=== PATIENT | female | born 1975 ===

== ENCOUNTER 2017-03-26 15:35 | Inpatient (IN) | payer MEDICAID ==
[2017-03-26 15:35] VITALS: BMI 33.9
--- NOTE | 2017-03-26 17:57 | ED PDOC ---
Lower Extremity Pain/Injury Time Seen by Provider: 03/26/17 16:12 Chief Complaint (Nursing): Lower Extremity Problem/Injury Chief Complaint (Provider): Leg pain History Per: Patient Additional Complaint(s): Pt is a 42 yo female, no PMH, has been undergoing wound care for the last 3 years due to chornic LE ulcerations. Patient sent to ED by Dr. Maurer for further evaluation and possible admission for OR Past Medical History Reviewed: Nursing Documentation, Vital Signs Vital Signs: Last Vital Signs Temp Pulse 66 03/26/17 15:56 Resp 18 03/26/17 15:56 BP 112/56 L 03/26/17 15:56 Pulse Ox 98 03/26/17 15:56 - Medical History PMH: No Chronic Diseases Denies: Chronic Kidney Disease - Family History Family History: States: Unknown Family Hx - Living Arrangements Living Arrangements: With Family - Social History Current smoker - smoking cessation education provided: No Alcohol: Social Drugs: Denies - Home Medications Home Medications: Ambulatory Orders Medication Instructions Recorded oxyCODONE/Acetaminophen [Percocet 1 tab PO Q8H PRN 03/26/17 5/325 mg Tab] - Allergies Allergies/Adverse Reactions: Allergies Allergy/AdvReac Type Severity Reaction Status Date / Time No Known Allergies Allergy Verified 07/21/16 17:34 Review of Systems ROS Statement: Except As Marked, All Systems Reviewed And Found Negative Musculoskeletal: Positive for: Leg Pain Physical Exam - Reviewed Nursing Documentation Reviewed: Yes Vital Signs Reviewed: Yes - Physical Exam Appears: Positive for: Well, Non-toxic, No Acute Distress Head Exam: Positive for: ATRAUMATIC, NORMAL INSPECTION, NORMOCEPHALIC Skin: Positive for: Normal Color, Warm, DRY Eye Exam: Positive for: EOMI, Normal appearance, PERRL ENT: Positive for: Normal ENT Inspection Neck: Positive for: Normal, Painless ROM Cardiovascular/Chest: Positive for: Regular Rate, Rhythm Respiratory: Positive for: CNT, Normal Breath Sounds Gastrointestinal/Abdominal: Positive for: Normal Exam, Bowel Sounds, Soft Back: Positive for: Normal Inspection Extremity: Positive for: Other (Exam prefomed by podiatry resident, see notes) Neurologic/Psych: Positive for: Alert, Oriented - Laboratory Results Result Diagrams: 03/26/17 18:15 03/26/17 18:15 - ECG O2 Sat by Pulse Oximetry: 98 Medical Decision Making Medical Decision Making: Podiatry consult obtained, residents at bedside. Diagnostics ordered Dr. Maurer requesting consults with Dr. aVlle and Dr. Mancini, resident states he will contact them FP resident presented for admission. Disposition - Clinical Impression Clinical Impression: Wounds, multiple open, lower extremity - Patient ED Disposition Is Patient to be Admitted: Yes - Disposition Disposition Time: 19:22 Condition: STABLE - POA Present On Arrival: None
[2017-03-26 18:24] LABS: BASO # 0.1 K/uL (0.0-0.2); BASO % 1.1 % (0.0-2.0); EOS # 0.1 K/uL (0.0-0.7); EOS % 0.8 % (0.0-4.0); HEMOGLOBIN 14.9 g/dL (12.0-16.0); LYMPH # 2.1 K/uL (1.0-4.3); MEAN CELL VOLUME 84.9 fl (81.0-99.0); MEAN CORPUSCULAR HEMOGLOBIN 28.7 pg (27.0-31.0); MEAN CORPUSCULAR HGB CONC 33.7 g/dL (33.0-37.0); MEAN PLATELET VOLUME 7.7 fl (7.2-11.7); MONO # 0.7 K/uL (0.0-0.8); MONO % 6.6 % (0.0-10.0); NEUT # 7.1 K/uL (1.8-7.0); NEUT % 70.5 % (50.0-75.0); NRBC % 0.1 % (0.0-0.0); RBC 5.2 Mil/uL (3.80-5.20); RED CELL DISTRIBUTION WIDTH 13.8 % (11.5-14.5)
[2017-03-26 18:45] LABS: ALB/GLOB RATIO 1.3 (1.0-2.1); ALBUMIN 4.4 g/dL (3.5-5.0); ALT/SGPT 34 U/L (9-52); AST/SGOT 27 U/L (14-36); BLOOD UREA NITROGEN 14 mg/dl (7-17); CALCIUM 9.1 mg/dL (8.4-10.2); GFR AFRICAN-AMERICAN > 60; GFR NON-AFRICAN AMERICAN > 60
--- NOTE | 2017-03-26 19:30 | CP.PCM.HP ---
History of Present Illness - History of Present Illness History of Present Illness: 42 yo F w h/o chronic lower extremity ulcers for several years is admitted for medical management of bilateral lower extremity ulcers and possible debridement. She states pain to be at a 2-3 out of 10 at the present time. The ulcers have been present for several years, she follows up with Podiatry, and she states that she last took Warfarin or any other anticoagulation medication 5 years ago. She also denies any fevers/chills, dizziness, lightheadedness, diaphoresis, night sweats, unexplained weight loss, nausea, vomiting, or diarrhea. She denies being aware of any medical problems in herself or other family members, such as "bleeding problems, clotting issues, Diabetes, HTN, heart problems, or breathing problems." As per chart review, she has an extensive h/o lower extremity ulcers over the previous few years, a sister with Factor V Leiden mutation (as per sister's own chart), and a likely family history of lower extremity ulcers in her sister and mother. She also denies any chest pain, SOB, dyspnea, cough, abdominal pain, hematuria, dysuria, or other myalgias. PMD: Dr Shaik Rehman Podiatry: Dr Maurer PMHx: chronic lower extremity ulcers; No documented history of Factor V Leiden Mutation seen PSHx: b/l Debridement Sep NKDA Home Meds: None FHx: None SHx: denies cigarettes, etoh, and illicit drugs Present on Admission - Present on Admission Any Indicators Present on Admission: No History of DVT/PE: No History of Uncontrolled Diabetes: No Urinary Catheter: No Decubitus Ulcer Present: No Review of Systems - Review of Systems All systems: reviewed and no additional remarkable complaints except (see HPI) Past Patient History - Past Medical History & Family History Past Medical History?: Yes - Past Social History Alcohol: Social Drugs: Denies - CARDIAC Hx Cardiac Disorders: No - PULMONARY Hx Respiratory Disorders: No - NEUROLOGICAL Hx Neurological Disorder: No - HEENT Hx HEENT Problems: No - RENAL Hx Chronic Kidney Disease: No - ENDOCRINE/METABOLIC Hx Endocrine Disorders: No - HEMATOLOGICAL/ONCOLOGICAL Hx Blood Disorders: No - INTEGUMENTARY Hx Dermatological Problems: Yes Other/Comment: FOOT ULCER - MUSCULOSKELETAL/RHEUMATOLOGICAL Hx Musculoskeletal Disorders: No - GASTROINTESTINAL Hx Gastrointestinal Disorders: No - GENITOURINARY/GYNECOLOGICAL Hx Genitourinary Disorders: No - PSYCHIATRIC Hx Psychophysiologic Disorder: No Hx Substance Use: No - SURGICAL HISTORY Hx Surgeries: Yes Hx Section: Yes (X3) Hx Musculoskeletal Surgery: Yes (BILATERAL FOOT) Other/Comment: BILATERAL DEBRIDMENT AND GRAFT APPLICATION 10/08/16 - ANESTHESIA Hx Anesthesia: Yes Hx Anesthesia Reactions: No Hx Malignant Hyperthermia: No Meds Allergies/Adverse Reactions: Allergies Allergy/AdvReac Type Severity Reaction Status Date / Time No Known Allergies Allergy Verified 07/21/16 17:34 Physical Exam - Constitutional Appears: Well, No Acute Distress - Head Exam Head Exam: ATRAUMATIC, NORMOCEPHALIC - Eye Exam Eye Exam: EOMI Pupil Exam: PERRL - ENT Exam ENT Exam: Mucous Membranes Moist - Neck Exam Neck exam: Positive for: Full Rom - Respiratory Exam Respiratory Exam: Clear to Auscultation Bilateral. absent: Rhonchi, Wheezes - Cardiovascular Exam Cardiovascular Exam: REGULAR RHYTHM - GI/Abdominal Exam GI & Abdominal Exam: Soft. absent: Distended, Tenderness - Extremities Exam Extremities exam: Positive for: pedal pulses present. Negative for: calf tenderness, pedal edema Additional comments: as seen w podiatry: ulcer present bilaterally on medial aspect of ankle, proximal to the medial malleolus; both have minimal serous drainage; no erythema surrounding or leading from wound - Back Exam Back exam: absent: CVA tenderness (L), CVA tenderness (R) - Neurological Exam Neurological exam: Alert, Oriented x3 - Skin Skin Exam: Dry, Normal Color, Warm Results - Vital Signs Recent Vital Signs: Last Vital Signs Temp Pulse 66 03/26/17 15:56 Resp 18 03/26/17 15:56 BP 112/56 L 03/26/17 15:56 Pulse Ox 98 03/26/17 19:24 - Labs Result Diagrams: 03/26/17 18:15 03/26/17 18:15 Assessment & Plan - Assessment and Plan (Free Text) Plan: 42 yo F w h/o chronic lower extremity ulcers for several years is admitted for medical management of bilateral lower extremity ulcers and possible debridement 1) Bilateral Lower Extremity Ulcers -Pain is appreciated at skin, marginal borders of ulcers -No h/o fever, Patient sent to ER by Podiatry wound care clinic -WBC: 10.0 -Percocet 5/325mg 1 tab PO Q4H PRN -Percocet 5/325mg 2 tab PO Q4H PRN -f/u CBC in AM -f/u BMP in AM -f/u Factor V Leiden Mutation -f/u Factor V Activity -f/u Vascular Consult -f/u ID Consult -Consider Hem/Onc Consult, due to extensive lower extremity ulcer history, family history, and possible need of extended anticoagulation 2) DVT Prophylaxis -Lovenox 40mg SC HS; d/w overnight Hospitalist, given such history -Consider Hem/Onc Consult, given extensive ulcer history and possible need of further anticoagulation
--- NOTE | 2017-03-26 20:14 | CP.PCM.CON ---
History of Present Illness - History of Present Illness History of Present Illness: 42 y/o female with no significant PMHx seen at bedside in ED complaining of mild pain secondary to open wounds on bilateral ankle. Pt states that she follows up with Dr. Maurer in the wound care center weekly. Pt states that she has little pain in her ankle because of the wounds on the both side. Pt also states that her dressing changes are usually painful. Pt states that she was asked to come to the ED to be admitted. Pt states that the wound on the right side has gotten little bigger than it was before. Pt denies of any recent F/N/V/C/SOB. PMHx: denies PSHx: denies SHx: denies Allergies: none Review of Systems - Constitutional Constitutional: As Per HPI Past Patient History - Past Medical History & Family History Past Medical History?: Yes - Past Social History Alcohol: Social Drugs: Denies - CARDIAC Hx Cardiac Disorders: No - PULMONARY Hx Respiratory Disorders: No - NEUROLOGICAL Hx Neurological Disorder: No - HEENT Hx HEENT Problems: No - RENAL Hx Chronic Kidney Disease: No - ENDOCRINE/METABOLIC Hx Endocrine Disorders: No - HEMATOLOGICAL/ONCOLOGICAL Hx Blood Disorders: No - INTEGUMENTARY Hx Dermatological Problems: Yes Other/Comment: FOOT ULCER - MUSCULOSKELETAL/RHEUMATOLOGICAL Hx Musculoskeletal Disorders: No - GASTROINTESTINAL Hx Gastrointestinal Disorders: No - GENITOURINARY/GYNECOLOGICAL Hx Genitourinary Disorders: No - PSYCHIATRIC Hx Psychophysiologic Disorder: No Hx Substance Use: No - SURGICAL HISTORY Hx Surgeries: Yes Hx Section: Yes (X3) Hx Musculoskeletal Surgery: Yes (BILATERAL FOOT) Other/Comment: BILATERAL DEBRIDMENT AND GRAFT APPLICATION 10/08/16 - ANESTHESIA Hx Anesthesia: Yes Hx Anesthesia Reactions: No Hx Malignant Hyperthermia: No Meds Allergies/Adverse Reactions: Allergies Allergy/AdvReac Type Severity Reaction Status Date / Time No Known Allergies Allergy Verified 07/21/16 17:34 Physical Exam - Constitutional Appears: Well, Non-toxic, No Acute Distress - Extremities Exam Additional comments: VASC: DP pulses are palpable 1/4 b/l, PT pulses are non-palpable, SECONDS INSPECTOR: < 3 sec x 10, TG: warm to cool, +1 pitting edema noted b/l DERM: wound present on the medial aspect of the ankle proximal to the medial malleolus b/l, wound bed is 70% granular and 30% fibrotic with minimal serous drainage, no probe to bone, no undermining, malodor present, no cathy-wound erythema noted, no purulence NEURO: Protective sensation intact ORTHO: tenderness on palpation of the ankle surrounding the wound b/l - Neurological Exam Neurological exam: Alert, Oriented x3 - Psychiatric Exam Psychiatric exam: Normal Affect, Normal Mood Results - Vital Signs Recent Vital Signs: Last Vital Signs Temp Pulse 66 03/26/17 15:56 Resp 18 03/26/17 15:56 BP 112/56 L 03/26/17 15:56 Pulse Ox 98 03/26/17 19:24 - Labs Result Diagrams: 03/26/17 18:15 03/26/17 18:15 Assessment & Plan - Assessment and Plan (Free Text) Assessment: 42 y/o female seen at bedside in ED for a wound secondary to venous stasis Plan: Pt evaluated and chart reviewed Pt discussed in details with attending Dr. Maurer Labs and vitals reviewed (afebrile, WBC @ 10.0) Wound cleaned using saline and dressed using adaptic, DSD, kurlix and MARYANN Pt tolerated the dressing change well ID consult for abx placement Vascular consult placed Rx for percocet PRN pain Rx bactroban - to be applied to the wound daily Pt admitted, podiatry to follow while pt is in house Pt to go for surgery later this week Thank you for podiatry consult - Date & Time Date: 03/26/17 Time: 05:30
[2017-03-26] MEDS ORDERED: Oxycodone/Acetaminophen 5/325 mg Tab PO PRN (20:34)
[2017-03-26 20:56] LABS: PARTIAL THROMBOPLASTIN TIME 26.4 Seconds (25.6-37.1); PROTHROMBIN TIME 11.2 Seconds (9.8-13.1)
[2017-03-26] MEDS ORDERED: Enoxaparin 40 mg Syringe SC SCH (22:00)
[2017-03-27] MEDS: Oxycodone/Acetaminophen 5/325 mg Tab PO PRN ×4 (00:19→17:51)
[2017-03-27] MEDS ORDERED: Benzocaine/Menthol SPRAY TOP PRN (02:58)
[2017-03-27 06:28] LABS: HEMOGLOBIN 14.5 g/dL (12.0-16.0); MEAN CORPUSCULAR HEMOGLOBIN 28.3 pg (27.0-31.0); MEAN CORPUSCULAR HGB CONC 33.7 g/dL (33.0-37.0); RBC 5.13 Mil/uL (3.80-5.20); RED CELL DISTRIBUTION WIDTH 13.5 % (11.5-14.5); WHITE BLOOD COUNT 9.3 K/uL (4.8-10.8)
[2017-03-27 06:30] LABS: BLOOD UREA NITROGEN 13 mg/dl (7-17); CALCIUM 8.8 mg/dL (8.4-10.2); GFR AFRICAN-AMERICAN > 60; GFR NON-AFRICAN AMERICAN > 60
--- NOTE | 2017-03-27 11:13 | CP.PCM.PN ---
Subjective - Date & Time of Evaluation Date of Evaluation: 03/27/17 Time of Evaluation: 09:00 - Subjective Subjective: Patient seen and examined at bedside. Reports moderate to severe pain from bilateral lower extremities, pain worsened with dressing changes. Denies fever, chills, n/v, chest pain, SOB, weakness or dizziness. Upon further questioning reports chronic/recurring ulcer for 11yrs in the same area, with hx of LE pain when she walks about 200m requiring multiple rest stops to alleviate pain and continue. Patient also reports bilateral LE DVT 3 yrs ago for which she took Warfarin for 6 months. She states she did not come to ED this past friday as recommended by her recreation officer as she needed to arrange care for her 7yr old daughter. Objective - Vital Signs/Intake and Output Vital Signs (last 24 hours): Temp Pulse Resp BP Pulse Ox 99.6 F 70 20 114/72 98 03/27/17 07:45 03/27/17 07:45 03/27/17 07:45 03/27/17 07:45 03/27/17 07:45 - Medications Medications: Current Medications Benzocaine/Menthol (Dermoplast) 1 sprays TOP PRN PRN PRN Reason: Pain, Mild (1-3) Enoxaparin Sodium (Lovenox) 40 mg SC HS [facility] PRN Reason: Protocol Last Admin: 03/26/17 23:18 Dose: 40 mg Vancomycin HCl 1,500 mg/ (Sodium Chloride) 250 mls @ 250 mls/hr IVPB Q12H [facility] Mupirocin (Bactroban Ointment) 1 applic TOP BID [facility] Last Admin: 03/27/17 08:44 Dose: Not Given Oxycodone/Acetaminophen (Percocet 5/325 Mg Tab) 1 tab PO Q4 PRN PRN Reason: Pain, moderate (4-7) Stop: 03/29/17 20:35 Last Admin: 03/27/17 02:58 Dose: 1 tab Oxycodone/Acetaminophen (Percocet 5/325 Mg Tab) 2 tab PO Q4 PRN PRN Reason: Pain, severe (8-10) Stop: 03/29/17 20:35 Last Admin: 03/27/17 08:38 Dose: 2 tab - Labs Labs: 03/27/17 05:55 07/06/17 05:55 PT 11.2 Seconds (9.8-13.1) 03/26/17 20:00 INR 1.0 (0.9-1.2) 03/26/17 20:00 APTT 26.4 Seconds (25.6-37.1) 03/26/17 20:00 - Constitutional Appears: Non-toxic, No Acute Distress, Older Than Stated Age, Other (obese) - Head Exam Head Exam: ATRAUMATIC, NORMOCEPHALIC - Eye Exam Eye Exam: EOMI, PERRL - ENT Exam ENT Exam: Mucous Membranes Moist (moderate oral candidiasis ) - Neck Exam Neck Exam: Full ROM. absent: Lymphadenopathy - Respiratory Exam Respiratory Exam: Clear to Ausculation Bilateral, NORMAL BREATHING PATTERN - Cardiovascular Exam Cardiovascular Exam: REGULAR RHYTHM, +S1, +S2 - GI/Abdominal Exam GI & Abdominal Exam: Soft (obese), Normal Bowel Sounds. absent: Distended, Tenderness - Extremities Exam Extremities Exam: Full ROM (bilateral LE wrapped in AE bandage, moderate tenderness to touch in medial ankle area, per podiatry bilateral ulcers proximal to medial malleolus with fibrinous tissue/no exudate or active drainage ), Normal Capillary Refill (strength 5/5 in bilateral upper and lower extremities). absent: Calf Tenderness (bilatera ankle ulcers proximal to medial malleolus), Pedal Edema - Back Exam Back Exam: absent: CVA tenderness (L), CVA tenderness (R) - Neurological Exam Neurological Exam: Alert, Awake, CN II-XII Intact, Oriented x3 - Psychiatric Exam Psychiatric exam: Normal Affect, Normal Mood - Skin Skin Exam: Dry, Intact, Warm Assessment and Plan - Assessment and Plan (Free Text) Assessment: 42 yr old F admitted for worsening infected bilateral lower extremity ulcers located proximal to medial malleolus with PMHx of chronic lower extremity ulcersx 11yrs. Patient LE pain in controlled with medicaion, is being treated with IV antibiotics. ID and Podiatry are on board, Cardiology was consulted, plan is to take patient to OR for debridement tomorrow pending cardiology evaluation. 1) Nonhealing Bilateral Lower Extremity Ulcers -worsening, PMHx of chronic LE ulcers -no leukocytosis, afebrile -Pain management with Percocet 5/325mg 1 tab PO Q4H PRN mild pain, Percocet 5/ 325mg 2 tab PO Q4H PRN moderate pain -CBC and BMP wnl -f/u wound Cx, blood Cx -f/u Factor V Leiden Mutation and Factor V Activity, HbA1c, lipid panel, Utox, HIV, Hep C -Cardiology/Vascular Consult appreciated: Dr. Valle, will follow recommendations -ID Consult appreciated Dr. Mancini, will follow recommendations -Consider Hem/Onc Consult, due to extensive lower extremity ulcer history, family history, and possible need of extended anticoagulation -Vancomycin 1500mg IV Q12 2) DVT Prophylaxis -Lovenox 40mg SC HS; d/w overnight Hospitalist, given such history -Consider Hem/Onc Consult, given extensive ulcer history and possible need of further anticoagulation
--- NOTE | 2017-03-27 11:48 | CP.PCM.PN ---
Subjective - Date & Time of Evaluation Date of Evaluation: 03/27/17 Time of Evaluation: 11:44 - Subjective Subjective: 42 y/o female seen at bedside complaining of pain secondary to open wounds on bilateral ankle. Pt is in NAD and is AAOx3. Pt states that she is having little pain in her ankle because of the wounds on the both side. Pt denies of any acute overnight events. Pt denies of any recent F/N/V/C/SOB. Pt's dressing is clean, dry and intact. Pt denies of any new pedal complains. Objective - Vital Signs/Intake and Output Vital Signs (last 24 hours): Temp Pulse Resp BP Pulse Ox 99.6 F 70 20 114/72 98 03/27/17 07:45 03/27/17 07:45 03/27/17 07:45 03/27/17 07:45 03/27/17 07:45 - Medications Medications: Current Medications Benzocaine/Menthol (Dermoplast) 1 sprays TOP PRN PRN PRN Reason: Pain, Mild (1-3) Enoxaparin Sodium (Lovenox) 40 mg SC HS [facility] PRN Reason: Protocol Last Admin: 03/26/17 23:18 Dose: 40 mg Vancomycin HCl 1.5 gm/ Sodium (Chloride) 500 mls @ 250 mls/hr IVPB Q12H [facility] Mupirocin (Bactroban Ointment) 1 applic TOP BID [facility] Last Admin: 03/27/17 08:44 Dose: Not Given Oxycodone/Acetaminophen (Percocet 5/325 Mg Tab) 1 tab PO Q4 PRN PRN Reason: Pain, moderate (4-7) Stop: 03/29/17 20:35 Last Admin: 03/27/17 02:58 Dose: 1 tab Oxycodone/Acetaminophen (Percocet 5/325 Mg Tab) 2 tab PO Q4 PRN PRN Reason: Pain, severe (8-10) Stop: 03/29/17 20:35 Last Admin: 03/27/17 08:38 Dose: 2 tab - Labs Labs: 03/27/17 05:55 03/27/17 05:55 PT 11.2 Seconds (9.8-13.1) 03/26/17 20:00 INR 1.0 (0.9-1.2) 03/26/17 20:00 APTT 26.4 Seconds (25.6-37.1) 03/26/17 20:00 - Constitutional Appears: Well, Non-toxic, No Acute Distress - Extremities Exam Additional comments: VASC: DP pulses are palpable 1/4 b/l, PT pulses are non-palpable, BROTHEL KEEPER: < 3 sec x 10, TG: warm to cool, +1 pitting edema noted b/l DERM: wound present on the medial aspect of the ankle proximal to the medial malleolus b/l, wound bed is 70% granular and 30% fibrosis, no active drainage, no probe to bone, no undermining, minimal malodor present, no cathy-wound erythema noted, no purulence NEURO: Protective sensation intact ORTHO: pain on palpation of the ankle surrounding the wound b/l - Neurological Exam Neurological Exam: Alert, Awake, Oriented x3 - Psychiatric Exam Psychiatric exam: Normal Affect, Normal Mood Assessment and Plan - Assessment and Plan (Free Text) Assessment: 42 y/o female seen at bedside for an wound secondary to venous stasis Plan: Pt evaluated and chart reviewed Pt discussed in details with attending Dr. Maurer Vitals and labs reviewed (afebrile) Wound cultures taken Dressing changed using bactroban, adaptic, DSD, kurlix and MARYANN Pt on percocet PRN pain ID consult placed for abx rec. Vascular consult placed Medical clearance requested Pt to go to OR for wound debridement tomorrow (Wednesday 03/28) Podiatry to follow the patient on daily basis
--- NOTE | 2017-03-27 12:44 | RAD ---
PROCEDURE: CHEST RADIOGRAPH, 1 VIEW HISTORY: pre op COMPARISON: None. [place] No pigtails FINDINGS: LUNGS: Clear. PLEURA: No pneumothorax or pleural fluid seen. CARDIOVASCULAR: Normal. OSSEOUS STRUCTURES: No significant abnormalities. VISUALIZED UPPER ABDOMEN: Normal. OTHER FINDINGS: None. IMPRESSION: No active disease.
[2017-03-27] MEDS: Vancomycin 1.5 GM in Sodium Chloride 0.9% 500 ML IVPB SCH (13:00)
[2017-03-27 16:09] LABS: BARBITURATES, UR NEGATIVE (NEGATIVE); BENZODIAZEPINES, UR NEGATIVE (NEGATIVE); OPIATES, UR POSITIVE (NEGATIVE); PHENCYCLIDINE, UR NEGATIVE (NEGATIVE)
--- NOTE | 2017-03-27 18:00 | CARD ---
APPROVED REPORT EKG Measurement Heart [id number] <Conclusion> Sinus bradycardia Otherwise normal ECG
--- NOTE | 2017-03-27 18:58 | CP.PCM.CON ---
Past Patient History - Past Medical History & Family History Past Medical History?: Yes - Past Social History Alcohol: Social Drugs: Denies - CARDIAC Hx Cardiac Disorders: No - PULMONARY Hx Respiratory Disorders: No - NEUROLOGICAL Hx Neurological Disorder: No - HEENT Hx HEENT Problems: No - RENAL Hx Chronic Kidney Disease: No - ENDOCRINE/METABOLIC Hx Endocrine Disorders: No - HEMATOLOGICAL/ONCOLOGICAL Hx Blood Disorders: No - INTEGUMENTARY Hx Dermatological Problems: Yes Other/Comment: FOOT ULCER - MUSCULOSKELETAL/RHEUMATOLOGICAL Hx Musculoskeletal Disorders: No - GASTROINTESTINAL Hx Gastrointestinal Disorders: No - GENITOURINARY/GYNECOLOGICAL Hx Genitourinary Disorders: No - PSYCHIATRIC Hx Psychophysiologic Disorder: No Hx Substance Use: No - SURGICAL HISTORY Hx Surgeries: Yes Hx Section: Yes (X3) Hx Musculoskeletal Surgery: Yes (BILATERAL FOOT) Other/Comment: BILATERAL DEBRIDMENT AND GRAFT APPLICATION 10/08/16 - ANESTHESIA Hx Anesthesia: Yes Hx Anesthesia Reactions: No Hx Malignant Hyperthermia: No Meds Allergies/Adverse Reactions: Allergies Allergy/AdvReac Type Severity Reaction Status Date / Time No Known Allergies Allergy Verified 07/21/16 17:34 - Medications Medications: Current Medications Benzocaine/Menthol (Dermoplast) 1 sprays TOP PRN PRN PRN Reason: Pain, Mild (1-3) Enoxaparin Sodium (Lovenox) 40 mg SC HS [facility] PRN Reason: Protocol Last Admin: 03/26/17 23:18 Dose: 40 mg Fluconazole (Diflucan) 200 mg PO DAILY [facility] Last Admin: 03/27/17 17:52 Dose: 200 mg Vancomycin HCl 1.5 gm/ Sodium (Chloride) 500 mls @ 250 mls/hr IVPB Q12H [facility] Last Admin: 03/27/17 13:00 Dose: 250 mls/hr Mupirocin (Bactroban Ointment) 1 applic TOP BID [facility] Last Admin: 03/27/17 18:31 Dose: Not Given Oxycodone/Acetaminophen (Percocet 5/325 Mg Tab) 1 tab PO Q4 PRN PRN Reason: Pain, moderate (4-7) Stop: 03/29/17 20:35 Last Admin: 03/27/17 02:58 Dose: 1 tab Oxycodone/Acetaminophen (Percocet 5/325 Mg Tab) 2 tab PO Q4 PRN PRN Reason: Pain, severe (8-10) Stop: 03/29/17 20:35 Last Admin: 03/27/17 17:51 Dose: 2 tab Results - Vital Signs Recent Vital Signs: Last Vital Signs Temp 98.9 F 03/27/17 16:12 Pulse 86 03/27/17 16:12 Resp 18 03/27/17 16:12 BP 111/71 03/27/17 16:12 Pulse Ox 97 03/27/17 16:12 - Labs Result Diagrams: 03/27/17 05:55 03/27/17 05:55 Labs: Laboratory Results - last 24 hr 03/26/17 03/27/17 03/27/17 20:00 05:55 05:55 WBC 9.3 RBC 5.13 Hgb 14.5 Hct 43.1 MCV 84.0 MCH 28.3 MCHC 33.7 RDW 13.5 Plt Count 328 PT 11.2 INR 1.0 APTT 26.4 Sodium 139 Potassium 4.1 Chloride 104 Carbon Dioxide 26 Anion Gap 13 BUN 13 Creatinine 0.7 Est GFR ( Amer) > 60 Est GFR (Non-Af Amer) > 60 Random Glucose 89 Calcium 8.8 Urine Opiates Screen Urine Methadone Screen Ur Barbiturates Screen Ur Phencyclidine Scrn Ur Amphetamines Screen U Benzodiazepines Scrn U Oth Cocaine Metabols U Cannabinoids Screen Hepatitis C Antibody HIV 1&2 Antibody Screen 03/27/17 03/27/17 03/27/17 12:18 12:18 15:00 WBC RBC Hgb Hct MCV MCH MCHC RDW Plt Count PT INR APTT Sodium Potassium Chloride Carbon Dioxide Anion Gap BUN Creatinine Est GFR ( Amer) Est GFR (Non-Af Amer) Random Glucose Calcium Urine Opiates Screen Positive H Urine Methadone Screen Negative Ur Barbiturates Screen Negative Ur Phencyclidine Scrn Negative Ur Amphetamines Screen Negative U Benzodiazepines Scrn Negative U Oth Cocaine Metabols Negative U Cannabinoids Screen Negative Hepatitis C Antibody Negative HIV 1&2 Antibody Screen Negative
--- NOTE | 2017-03-27 20:04 | CP.PCM.CON ---
Past Patient History - Past Medical History & Family History Past Medical History?: Yes - Past Social History Alcohol: Social Drugs: Denies - CARDIAC Hx Cardiac Disorders: No - PULMONARY Hx Respiratory Disorders: No - NEUROLOGICAL Hx Neurological Disorder: No - HEENT Hx HEENT Problems: No - RENAL Hx Chronic Kidney Disease: No - ENDOCRINE/METABOLIC Hx Endocrine Disorders: No - HEMATOLOGICAL/ONCOLOGICAL Hx Blood Disorders: No - INTEGUMENTARY Hx Dermatological Problems: Yes Other/Comment: FOOT ULCER - MUSCULOSKELETAL/RHEUMATOLOGICAL Hx Musculoskeletal Disorders: No - GASTROINTESTINAL Hx Gastrointestinal Disorders: No - GENITOURINARY/GYNECOLOGICAL Hx Genitourinary Disorders: No - PSYCHIATRIC Hx Psychophysiologic Disorder: No Hx Substance Use: No - SURGICAL HISTORY Hx Surgeries: Yes Hx Section: Yes (X3) Hx Musculoskeletal Surgery: Yes (BILATERAL FOOT) Other/Comment: BILATERAL DEBRIDMENT AND GRAFT APPLICATION 10/08/16 - ANESTHESIA Hx Anesthesia: Yes Hx Anesthesia Reactions: No Hx Malignant Hyperthermia: No Meds Allergies/Adverse Reactions: Allergies Allergy/AdvReac Type Severity Reaction Status Date / Time No Known Allergies Allergy Verified 07/21/16 17:34 - Medications Medications: Current Medications Benzocaine/Menthol (Dermoplast) 1 sprays TOP PRN PRN PRN Reason: Pain, Mild (1-3) Enoxaparin Sodium (Lovenox) 40 mg SC HS PAOLA PRN Reason: Protocol Last Admin: 03/26/17 23:18 Dose: 40 mg Fluconazole (Diflucan) 200 mg PO DAILY [facility] Last Admin: 03/27/17 17:52 Dose: 200 mg Vancomycin HCl 1.5 gm/ Sodium (Chloride) 500 mls @ 250 mls/hr IVPB Q12H [facility] Last Admin: 03/27/17 13:00 Dose: 250 mls/hr Mupirocin (Bactroban Ointment) 1 applic TOP BID [facility] Last Admin: 03/27/17 18:31 Dose: Not Given Oxycodone/Acetaminophen (Percocet 5/325 Mg Tab) 1 tab PO Q4 PRN PRN Reason: Pain, moderate (4-7) Stop: 03/29/17 20:35 Last Admin: 03/27/17 02:58 Dose: 1 tab Oxycodone/Acetaminophen (Percocet 5/325 Mg Tab) 2 tab PO Q4 PRN PRN Reason: Pain, severe (8-10) Stop: 03/29/17 20:35 Last Admin: 03/27/17 17:51 Dose: 2 tab Results - Vital Signs Recent Vital Signs: Last Vital Signs Temp 98.9 F 03/27/17 16:12 Pulse 86 03/27/17 16:12 Resp 18 03/27/17 16:12 BP 111/71 03/27/17 16:12 Pulse Ox 97 03/27/17 16:12 - Labs Result Diagrams: 03/27/17 05:55 03/27/17 05:55 Labs: Laboratory Results - last 24 hr 03/26/17 03/27/17 03/27/17 20:00 05:55 05:55 WBC 9.3 RBC 5.13 Hgb 14.5 Hct 43.1 MCV 84.0 MCH 28.3 MCHC 33.7 RDW 13.5 Plt Count 328 PT 11.2 INR 1.0 APTT 26.4 Sodium 139 Potassium 4.1 Chloride 104 Carbon Dioxide 26 Anion Gap 13 BUN 13 Creatinine 0.7 Est GFR ( Amer) > 60 Est GFR (Non-Af Amer) > 60 Random Glucose 89 Calcium 8.8 Urine Opiates Screen Urine Methadone Screen Ur Barbiturates Screen Ur Phencyclidine Scrn Ur Amphetamines Screen U Benzodiazepines Scrn U Oth Cocaine Metabols U Cannabinoids Screen Hepatitis C Antibody HIV 1&2 Antibody Screen 03/27/17 03/27/17 03/27/17 12:18 12:18 15:00 WBC RBC Hgb Hct MCV MCH MCHC RDW Plt Count PT INR APTT Sodium Potassium Chloride Carbon Dioxide Anion Gap BUN Creatinine Est GFR ( Amer) Est GFR (Non-Af Amer) Random Glucose Calcium Urine Opiates Screen Positive H Urine Methadone Screen Negative Ur Barbiturates Screen Negative Ur Phencyclidine Scrn Negative Ur Amphetamines Screen Negative U Benzodiazepines Scrn Negative U Oth Cocaine Metabols Negative U Cannabinoids Screen Negative Hepatitis C Antibody Negative HIV 1&2 Antibody Screen Negative
--- NOTE | 2017-03-27 20:05 | CP.PCM.CON ---
History of Present Illness - History of Present Illness History of Present Illness: I was asked to evaluate patient for preoperative cardiovascular risk assessment. Patient is a 42 year old female with a history of lwoer extremity venous ulcers who requires wound debridement. The patient states pain has been present in the lower extremities, and has been worse recently. The patient has no chest pain or dyspnea. She denies palpitations or syncope. Review of Systems - Constitutional Constitutional: absent: As Per HPI, Anorexia, Chills, Daytime Sleepiness, Excessive Sweating, Fatigue, Fever, Frequent Falls, Headache, Increased Appetite , Lethargy, Malaise, Night Sweats, Snoring, Sleep Apnea, Weight Gain, Weight Loss, Weakness, Other - EENT Eyes: absent: As Per HPI, Blind Spots, Blurred Vision, Change in Vision, Decreased Night Vision, Diplopia, Discharge, Dry Eye, Exophthalmos, Floaters, Irritation, Itchy Eyes, Loss of Peripheral Vision, Pain, Photophobia, Requires Corrective Lenses, Sees Flashes, Spots in Vision, Tunnel Vision, Other Visual Disturbances, Loss of Vision, Other Ears: absent: As Per HPI, Decreased Hearing, Ear Discharge, Ear Pain, Tinnitus, Abnormal Hearing, Disequilibrium, Dizziness, Other Nose/Mouth/Throat: absent: As Per HPI, Epistaxis, Nasal Congestion, Nasal Discharge, Nasal Obstruction, Nasal Trauma, Nose Pain, Post Nasal Drip, Sinus Pain, Sinus Pressure, Bleeding Gums, Change in Voice, Dental Pain, Dry Mouth, Dysphagia, Halitosis, Hoarsness, Lip Swelling, Mouth Lesions, Mouth Pain, Odynophagia, Sore Throat, Throat Swelling, Tongue Swelling, Facial Pain, Neck Pain, Neck Mass, Other - Cardiovascular Cardiovascular: absent: As Per HPI, Acrocyanosis, Chest Pain, Chest Pain at Rest , Chest Pain with Activity, Claudication, Diaphoresis, Dyspnea, Dyspnea on Exertion, Edema, Irregular Heart Rhythm, Pain Radiating to Arm/Neck/Jaw, Leg Edema, Leg Ulcers, Lightheadedness, Orthopnea, Palpitations, Paroxysmal Nocturnal Dyspnea, Pedal Edema, Radiating Pain, Rapid Heart Rate, Slow Heart Rate, Syncope, Other - Respiratory Respiratory: absent: As Per HPI, Cough, Dyspnea, Hemoptysis, Dyspnea on Exertion , Wheezing, Snoring, Stridor, Pain on Inspiration, Chest Congestion, Excessive Mucous Production, Change in Mucous Color, Pain with Coughing, Other - Gastrointestinal Gastrointestinal: absent: As Per HPI, Abdominal Pain, Belching, Bloating, Change in Bowel Habits, Change in Stool Character, Coffee Ground Emesis, Constipation, Cramping, Diarrhea, Dyspepsia, Dysphagia, Early Satiety, Excessive Flatus, Fecal Incontinence, Heartburn, Hematemesis, Hematochezia, Loose Stools, Melena, Nausea, Odynophagia, Temesmus, Vomiting, Other - Genitourinary Genitourinary: absent: As Per HPI, Change in Urinary Stream, Difficulty Urinating, Dysuria, Flank Pain, Hematuria, Pyuria, Nocturia, Urinary Incontinence, Urinary Frequency, Urinary Hesitance, Urinary Urgency, Voiding Freq/Small Amts, Freq UTI, Hx Renal/Bladder Calculi, Hx /Renal Surgery, Bladder Distension, Other - Musculoskeletal Musculoskeletal: Radiating Pain into Limb - Integumentary Integumentary: Non-Healing Lesions, Skin Ulcer - Neurological Neurological: absent: As Per HPI, Abnormal Gait, Abnormal Hearing, Abnormal Movements, Abnormal Speech, Behavioral Changes, Burning Sensations, Confusion, Convulsions, Disequilibrium, Dizziness, Numbness, Focal Weakness, Frequent Falls , Headaches, Lack of Coordination, Loss of Vision, Memory Loss, Paresthesias, Radicular Pain, Restless Legs, Sensory Deficit, Syncope, Tingling, Tremor, Vertigo, Weakness, Other Visual Disturbances, Other - Psychiatric Psychiatric: absent: As Per HPI, Abnormal Sleep Pattern, Anhedonia, Anxiety, Auditory Hallucinations, Behavioral Changes, Change in Appetite, Change in Libido, Confusion, Depression, Difficulty Concentrating, Hallucinations, Homicidal Ideation, Hopelessness, Irritability, Memory Loss, Mood Swings, Panic Attacks, Paranoia, Suicidal Ideation, Visual Hallucinations, Tactile Hallucinations, Other - Endocrine Endocrine: absent: As Per HPI, Change in Body Appearance, Change in Libido, Cold Intolorance, Deepening of Voice, Excessive Sweating, Fatigue, Flushing, Heat Intolorance, Increase in Ring/Shoe/Hat Size, Palpitations, Polydipsia, Polyphagia, Polyuria, Other - Hematologic/Lymphatic Hematologic: absent: As Per HPI, Easy Bleeding, Easy Bruising, Lymphadenopathy, Other Past Patient History - Past Medical History & Family History Past Medical History?: Yes - Past Social History Alcohol: Social Drugs: Denies - CARDIAC Hx Cardiac Disorders: No - PULMONARY Hx Respiratory Disorders: No - NEUROLOGICAL Hx Neurological Disorder: No - HEENT Hx HEENT Problems: No - RENAL Hx Chronic Kidney Disease: No - ENDOCRINE/METABOLIC Hx Endocrine Disorders: No - HEMATOLOGICAL/ONCOLOGICAL Hx Blood Disorders: No - INTEGUMENTARY Hx Dermatological Problems: Yes Other/Comment: FOOT ULCER - MUSCULOSKELETAL/RHEUMATOLOGICAL Hx Musculoskeletal Disorders: No - GASTROINTESTINAL Hx Gastrointestinal Disorders: No - GENITOURINARY/GYNECOLOGICAL Hx Genitourinary Disorders: No - PSYCHIATRIC Hx Psychophysiologic Disorder: No Hx Substance Use: No - SURGICAL HISTORY Hx Surgeries: Yes Hx Section: Yes (X3) Hx Musculoskeletal Surgery: Yes (BILATERAL FOOT) Other/Comment: BILATERAL DEBRIDMENT AND GRAFT APPLICATION 10/08/16 - ANESTHESIA Hx Anesthesia: Yes Hx Anesthesia Reactions: No Hx Malignant Hyperthermia: No Meds Allergies/Adverse Reactions: Allergies Allergy/AdvReac Type Severity Reaction Status Date / Time No Known Allergies Allergy Verified 07/21/16 17:34 - Medications Medications: Current Medications Benzocaine/Menthol (Dermoplast) 1 sprays TOP PRN PRN PRN Reason: Pain, Mild (1-3) Enoxaparin Sodium (Lovenox) 40 mg SC HS PAOLA PRN Reason: Protocol Last Admin: 03/26/17 23:18 Dose: 40 mg Fluconazole (Diflucan) 200 mg PO DAILY [facility] Last Admin: 03/27/17 17:52 Dose: 200 mg Vancomycin HCl 1.5 gm/ Sodium (Chloride) 500 mls @ 250 mls/hr IVPB Q12H [facility] Last Admin: 03/27/17 13:00 Dose: 250 mls/hr Mupirocin (Bactroban Ointment) 1 applic TOP BID [facility] Last Admin: 03/27/17 18:31 Dose: Not Given Oxycodone/Acetaminophen (Percocet 5/325 Mg Tab) 1 tab PO Q4 PRN PRN Reason: Pain, moderate (4-7) Stop: 03/29/17 20:35 Last Admin: 03/27/17 02:58 Dose: 1 tab Oxycodone/Acetaminophen (Percocet 5/325 Mg Tab) 2 tab PO Q4 PRN PRN Reason: Pain, severe (8-10) Stop: 03/29/17 20:35 Last Admin: 03/27/17 17:51 Dose: 2 tab Physical Exam - Constitutional Appears: Non-toxic - Head Exam Head Exam: NORMAL INSPECTION - Eye Exam Eye Exam: Normal appearance - ENT Exam ENT Exam: Mucous Membranes Moist - Neck Exam Neck exam: Positive for: Full Rom - Respiratory Exam Respiratory Exam: NORMAL BREATHING PATTERN - Cardiovascular Exam Cardiovascular Exam: REGULAR RHYTHM - GI/Abdominal Exam GI & Abdominal Exam: Normal Bowel Sounds - Rectal Exam Rectal Exam: Deferred - Extremities Exam Extremities exam: Positive for: pedal edema, pedal pulses present - Back Exam Back exam: NORMAL INSPECTION - Neurological Exam Neurological exam: Alert, Oriented x3 - Psychiatric Exam Psychiatric exam: Normal Affect - Skin Skin Exam: Normal Color Results - Vital Signs Recent Vital Signs: Last Vital Signs Temp 98.9 F 03/27/17 16:12 Pulse 86 03/27/17 16:12 Resp 18 03/27/17 16:12 BP 111/71 03/27/17 16:12 Pulse Ox 97 03/27/17 16:12 - Labs Result Diagrams: 03/27/17 05:55 03/27/17 05:55 Labs: Laboratory Results - last 24 hr 03/26/17 03/27/17 03/27/17 20:00 05:55 05:55 WBC 9.3 RBC 5.13 Hgb 14.5 Hct 43.1 MCV 84.0 MCH 28.3 MCHC 33.7 RDW 13.5 Plt Count 328 PT 11.2 INR 1.0 APTT 26.4 Sodium 139 Potassium 4.1 Chloride 104 Carbon Dioxide 26 Anion Gap 13 BUN 13 Creatinine 0.7 Est GFR ( Amer) > 60 Est GFR (Non-Af Amer) > 60 Random Glucose 89 Calcium 8.8 Urine Opiates Screen Urine Methadone Screen Ur Barbiturates Screen Ur Phencyclidine Scrn Ur Amphetamines Screen U Benzodiazepines Scrn U Oth Cocaine Metabols U Cannabinoids Screen Hepatitis C Antibody HIV 1&2 Antibody Screen 03/27/17 03/27/17 03/27/17 12:18 12:18 15:00 WBC RBC Hgb Hct MCV MCH MCHC RDW Plt Count PT INR APTT Sodium Potassium Chloride Carbon Dioxide Anion Gap BUN Creatinine Est GFR ( Amer) Est GFR (Non-Af Amer) Random Glucose Calcium Urine Opiates Screen Positive H Urine Methadone Screen Negative Ur Barbiturates Screen Negative Ur Phencyclidine Scrn Negative Ur Amphetamines Screen Negative U Benzodiazepines Scrn Negative U Oth Cocaine Metabols Negative U Cannabinoids Screen Negative Hepatitis C Antibody Negative HIV 1&2 Antibody Screen Negative - EKG Data EKG Interpreted by: Myself EKG shows normal: Sinus rhythm Assessment & Plan (1) Wounds, multiple open, lower extremity Assessment and Plan: patient has no significant cardiovascular symptoms or risk factors. There is no cardiovascular contraindication to the planned debridement. Status: Acute Priority: High
[2017-03-27] MEDS: Morphine 4 MG/ML VIAL IVP PRN (23:12)
[2017-03-28] MEDS: Vancomycin 1.5 GM in Sodium Chloride 0.9% 500 ML IVPB SCH ×2 (00:22→15:34)
[2017-03-28] MEDS: Morphine 4 MG/ML VIAL IVP PRN ×3 (00:57→13:43)
[2017-03-28 06:58] LABS: BASO # 0.1 K/uL (0.0-0.2); EOS # 0.1 K/uL (0.0-0.7); EOS % 1.5 % (0.0-4.0); HEMOGLOBIN 14.7 g/dL (12.0-16.0); LYMPH # 2.6 K/uL (1.0-4.3); LYMPH % 27.2 % (20.0-40.0); MEAN CELL VOLUME 85.4 fl (81.0-99.0); MEAN CORPUSCULAR HEMOGLOBIN 28.8 pg (27.0-31.0); MEAN CORPUSCULAR HGB CONC 33.8 g/dL (33.0-37.0); MEAN PLATELET VOLUME 7.8 fl (7.2-11.7); MONO # 0.7 K/uL (0.0-0.8); MONO % 7.2 % (0.0-10.0); NEUT # 6.1 K/uL (1.8-7.0); NEUT % 63.1 % (50.0-75.0); NRBC % 0.1 % (0.0-0.0); RBC 5.1 Mil/uL (3.80-5.20); RED CELL DISTRIBUTION WIDTH 13.6 % (11.5-14.5); WHITE BLOOD COUNT 9.7 K/uL (4.8-10.8)
[2017-03-28 06:59] LABS: BLOOD UREA NITROGEN 13 mg/dl (7-17); CALCIUM 8.9 mg/dL (8.4-10.2); GFR AFRICAN-AMERICAN > 60; GFR NON-AFRICAN AMERICAN > 60; HDL CHOLESTEROL 33 MG/DL (30-70)
[2017-03-28 07:09] LABS: LDL CHOLESTEROL 103 mg/dL (0-129)
[2017-03-28 07:14] LABS: PARTIAL THROMBOPLASTIN TIME 28.5 Seconds (25.6-37.1); PROTHROMBIN TIME 11.3 Seconds (9.8-13.1)
--- NOTE | 2017-03-28 07:27 | CP.PCM.PN ---
Subjective - Date & Time of Evaluation Date of Evaluation: 03/28/17 Time of Evaluation: 07:25 - Subjective Subjective: 42 y/o female seen at bedside complaining of pain secondary to open wounds on bilateral ankles. Pt is in NAD and is AAOx3. Pt states that she does not have any pain in her ankle unless the dressing is being changed. Pt denies of any acute overnight events. Pt denies of any recent F/N/V/C/SOB. Pt states that she is aware of her going to the surgery today and has been NPO. Pt's dressing is clean, dry and intact. Pt denies of any new pedal complains. Objective - Vital Signs/Intake and Output Vital Signs (last 24 hours): Temp Pulse Resp BP Pulse Ox 98 F 62 18 106/74 97 03/28/17 01:00 03/28/17 01:00 03/28/17 01:00 03/28/17 01:00 03/28/17 01:00 - Medications Medications: Current Medications Benzocaine/Menthol (Dermoplast) 1 sprays TOP PRN PRN PRN Reason: Pain, Mild (1-3) Enoxaparin Sodium (Lovenox) 40 mg SC HS PAOLA PRN Reason: Protocol Last Admin: 03/26/17 23:18 Dose: 40 mg Fluconazole (Diflucan) 200 mg PO DAILY [facility] Last Admin: 03/27/17 17:52 Dose: 200 mg Vancomycin HCl 1.5 gm/ Sodium (Chloride) 500 mls @ 250 mls/hr IVPB Q12H [facility] Last Admin: 03/28/17 00:22 Dose: 250 mls/hr Morphine Sulfate (Morphine) 2 mg IVP Q4 PRN PRN Reason: Pain, moderate (4-7) Last Admin: 03/28/17 00:57 Dose: 2 mg Morphine Sulfate (Morphine) 4 mg IVP Q4 PRN PRN Reason: Pain, severe (8-10) Last Admin: 03/28/17 06:55 Dose: 4 mg Mupirocin (Bactroban Ointment) 1 applic TOP BID [facility] Last Admin: 03/27/17 18:31 Dose: Not Given - Labs Labs: 03/28/17 05:30 03/28/17 05:30 PT 11.3 Seconds (9.8-13.1) 03/28/17 05:30 INR 1.0 (0.9-1.2) 03/28/17 05:30 APTT 28.5 Seconds (25.6-37.1) 03/28/17 05:30 - Constitutional Appears: Well, Non-toxic, No Acute Distress - Extremities Exam Additional comments: VASC: DP pulses are palpable 1/4 b/l, PT pulses are non-palpable, BASEBALL PITCHER: < 3 sec x 10, TG: warm to cool, +1 pitting edema noted b/l DERM: wound present on the medial aspect of the ankle proximal to the medial malleolus b/l, wound bed is 70% granular and 30% fibrosis, no active drainage from the wound bed, no probe to bone, no undermining, no malodor present, no cathy-wound erythema noted, no purulence NEURO: Protective sensation intact ORTHO: pain on palpation of the ankle surrounding the wound b/l - Neurological Exam Neurological Exam: Alert, Awake, Oriented x3 - Psychiatric Exam Psychiatric exam: Normal Affect Assessment and Plan - Assessment and Plan (Free Text) Assessment: 42 y/o female seen at bedside for b/l ankle wounds secondary to venous stasis Plan: Pt evaluated and chart reviewed Pt discussed in details with attending Dr. Maurer Vitals and labs reviewed (afebrile WBC @ 9.7) Wound cultures taken - pending Dressing changed using bactroban, adaptic, DSD, kurlix and MARYANN Pt on percocet PRN pain IV abx as per ID Pt stable from cardiovascular standpoint for planned wound debridement procedure Pt is medically cleared for planned wound debridement procedure Pt to go to OR for wound debridement today (Wednesday 03/28) Podiatry to follow the patient on daily basis
--- NOTE | 2017-03-28 08:57 | CP.PCM.PN ---
Subjective - Date & Time of Evaluation Date of Evaluation: 03/28/17 Time of Evaluation: 08:00 - Subjective Subjective: Patient seen and examined at bedside. Reports severe pain with wound care and dressing change of bilateral LE ulcers. Patient is aware she is NPO for wound debridement in OR today. Denies SOB, weakness, dizziness, chest pain or headaches. Reports she ambulated to the bathroom without difficulty today to "wash up", but experienced increase in LE pain when ambulating. Has normal urine and stool output. Objective - Vital Signs/Intake and Output Vital Signs (last 24 hours): Temp Pulse Resp BP Pulse Ox 97.9 F 63 20 140/78 98 03/28/17 08:42 03/28/17 08:42 03/28/17 08:42 03/28/17 08:42 03/28/17 08:42 - Medications Medications: Current Medications Benzocaine/Menthol (Dermoplast) 1 sprays TOP PRN PRN PRN Reason: Pain, Mild (1-3) Enoxaparin Sodium (Lovenox) 40 mg SC HS PAOLA PRN Reason: Protocol Last Admin: 03/26/17 23:18 Dose: 40 mg Fluconazole (Diflucan) 200 mg PO DAILY [facility] Last Admin: 03/27/17 17:52 Dose: 200 mg Vancomycin HCl 1.5 gm/ Sodium (Chloride) 500 mls @ 250 mls/hr IVPB Q12H [facility] Last Admin: 03/28/17 00:22 Dose: 250 mls/hr Morphine Sulfate (Morphine) 2 mg IVP Q4 PRN PRN Reason: Pain, moderate (4-7) Last Admin: 03/28/17 00:57 Dose: 2 mg Morphine Sulfate (Morphine) 4 mg IVP Q4 PRN PRN Reason: Pain, severe (8-10) Last Admin: 03/28/17 06:55 Dose: 4 mg Mupirocin (Bactroban Ointment) 1 applic TOP BID [facility] Last Admin: 03/27/17 18:31 Dose: Not Given - Labs Labs: 03/28/17 05:30 03/28/17 05:30 PT 11.3 Seconds (9.8-13.1) 03/28/17 05:30 INR 1.0 (0.9-1.2) 03/28/17 05:30 APTT 28.5 Seconds (25.6-37.1) 03/28/17 05:30 - Constitutional Appears: Non-toxic, Older Than Stated Age - Head Exam Head Exam: ATRAUMATIC, NORMOCEPHALIC - Eye Exam Eye Exam: EOMI, PERRL - ENT Exam ENT Exam: Mucous Membranes Moist (oral thrush improving) - Neck Exam Neck Exam: Full ROM. absent: Lymphadenopathy - Respiratory Exam Respiratory Exam: Clear to Ausculation Bilateral, NORMAL BREATHING PATTERN - Cardiovascular Exam Cardiovascular Exam: REGULAR RHYTHM, +S1, +S2 - GI/Abdominal Exam GI & Abdominal Exam: Soft (obese), Normal Bowel Sounds. absent: Distended, Tenderness - Extremities Exam Extremities Exam: Full ROM (bilateral distal LE wrapped in MARYANN bandage, severe tenderness to touch in medial ankle area, per podiatry bilateral ulcers proximal to medial malleolus with fibrinous tissue/no exudate or active drainage ), Normal Capillary Refill (strength 5/5 in bilateral upper and lower extremities), Pedal Edema (b/l pitting edema +1 ), Tenderness (in bilateral ankle ulcers proximal to medial malleolus and surrounding area) - Back Exam Back Exam: absent: CVA tenderness (L), CVA tenderness (R) - Neurological Exam Neurological Exam: Alert, Awake, CN II-XII Intact, Oriented x3 - Psychiatric Exam Psychiatric exam: Normal Affect, Normal Mood - Skin Skin Exam: Dry, Intact, Warm Assessment and Plan - Assessment and Plan (Free Text) Assessment: 42 yr old F admitted for worsening infected bilateral lower extremity ulcers located proximal to medial malleolus with PMHx of chronic lower extremity ulcers x 11yrs. Patients b/l LE controlled with medication, is being treated with IV antibiotics. ID and Podiatry are on board, Cardiology cleared patient for OR, plan is to take patient to OR for debridement today. Patient is medically optimized for OR. 1) Nonhealing Bilateral Lower Extremity Ulcers -worsening, likely secondary to peripheral vascular disease, PMHx of chronic LE ulcers -no leukocytosis, afebrile -Pain management adjusted with Morphine 2mg IV Q4H PRN moderate pain (4-7), Morphine 4mg IV Q4H PRN severe pain (8-10) -CBC and BMP wnl today, lipid panel wnl, Utox positive for opioids, HIV neg, Hep C neg -f/u wound Cx, blood Cx -f/u Factor V Leiden Mutation and Factor V Activity, HbA1c -Cardiology/Vascular Consult appreciated: Dr. Valle, will follow recommendations -ID Consult appreciated Dr. Mancini, will follow recommendations -Consider Hem/Onc Consult, due to extensive lower extremity ulcer history, family history, and possible need of extended anticoagulation -Vancomycin 1500mg IV Q12 (day 2 ), f/u vanc trough to be drawn before 4th dose 2) Oropharyngeal Candidiasis -improving -continue Fluconazole 200mg PO QD (day 2) 3) DVT Prophylaxis -HELD for OR today :Lovenox 40mg SC HS -Consider Hem/Onc Consult, given extensive ulcer history and possible need of further anticoagulation
[2017-03-28] MEDS ORDERED: ceFAZolin 1 GM in Sodium Chloride 0.9% 100 ML IVPB ONE (13:16)
[2017-03-28] MEDS ORDERED: Lidocaine 1% Inj (20ml) IJ ONE ×2 (13:17→16:50)
[2017-03-28] MEDS ORDERED: Sodium Chloride 0.9% 500 ML IV SCH (13:30)
--- NOTE | 2017-03-28 13:44 | CP.PCM.CON ---
History of Present Illness - History of Present Illness History of Present Illness: 2 y/o female with no significant PMHx seen at bedside in ED complaining of mild pain secondary to open wounds on bilateral ankle. Pt states that she follows up with Dr. Maurer in the wound care center weekly. Pt states that she has little pain in her ankle because of the wounds on the both side. Pt also states that her dressing changes are usually painful. Pt states that she was asked to come to the ED to be admitted. Pt states that the wound on the right side has gotten little bigger than it was before. Pt denies of any recent F/N/V/C/SOB. empiric iv antibiotics started PMHx: denies PSHx: denies SHx: denies Allergies: none Review of Systems - Constitutional Constitutional: As Per HPI - EENT Eyes: absent: As Per HPI, Blind Spots, Blurred Vision, Change in Vision, Decreased Night Vision, Diplopia, Discharge, Dry Eye, Exophthalmos, Floaters, Irritation, Itchy Eyes, Loss of Peripheral Vision, Pain, Photophobia, Requires Corrective Lenses, Sees Flashes, Spots in Vision, Tunnel Vision, Other Visual Disturbances, Loss of Vision, Other Ears: absent: As Per HPI, Decreased Hearing, Ear Discharge, Ear Pain, Tinnitus, Abnormal Hearing, Disequilibrium, Dizziness, Other Nose/Mouth/Throat: absent: As Per HPI, Epistaxis, Nasal Congestion, Nasal Discharge, Nasal Obstruction, Nasal Trauma, Nose Pain, Post Nasal Drip, Sinus Pain, Sinus Pressure, Bleeding Gums, Change in Voice, Dental Pain, Dry Mouth, Dysphagia, Halitosis, Hoarsness, Lip Swelling, Mouth Lesions, Mouth Pain, Odynophagia, Sore Throat, Throat Swelling, Tongue Swelling, Facial Pain, Neck Pain, Neck Mass, Other - Breasts Breasts: absent: As Per HPI, Change in Shape, Mass, Pain, Nipple Discharge, Nipple Inversion, Skin Changes, Swelling, Other - Cardiovascular Cardiovascular: absent: As Per HPI, Acrocyanosis, Chest Pain, Chest Pain at Rest , Chest Pain with Activity, Claudication, Diaphoresis, Dyspnea, Dyspnea on Exertion, Edema, Irregular Heart Rhythm, Pain Radiating to Arm/Neck/Jaw, Leg Edema, Leg Ulcers, Lightheadedness, Orthopnea, Palpitations, Paroxysmal Nocturnal Dyspnea, Pedal Edema, Radiating Pain, Rapid Heart Rate, Slow Heart Rate, Syncope, Other - Respiratory Respiratory: absent: As Per HPI, Cough, Dyspnea, Hemoptysis, Dyspnea on Exertion , Wheezing, Snoring, Stridor, Pain on Inspiration, Chest Congestion, Excessive Mucous Production, Change in Mucous Color, Pain with Coughing, Other - Gastrointestinal Gastrointestinal: absent: As Per HPI, Abdominal Pain, Belching, Bloating, Change in Bowel Habits, Change in Stool Character, Coffee Ground Emesis, Constipation, Cramping, Diarrhea, Dyspepsia, Dysphagia, Early Satiety, Excessive Flatus, Fecal Incontinence, Heartburn, Hematemesis, Hematochezia, Loose Stools, Melena, Nausea, Odynophagia, Temesmus, Vomiting, Other - Genitourinary Genitourinary: absent: As Per HPI, Change in Urinary Stream, Difficulty Urinating, Dysuria, Flank Pain, Hematuria, Pyuria, Nocturia, Urinary Incontinence, Urinary Frequency, Urinary Hesitance, Urinary Urgency, Voiding Freq/Small Amts, Freq UTI, Hx Renal/Bladder Calculi, Hx /Renal Surgery, Bladder Distension, Other - Reproductive: Female Reproductive:Female: absent: As Per HPI, Amenorrhea, Amenorrhea/ Control, Currently Menstual, Cycle <21 Days, Cycle >35 Days, Cycle Variable, Menses 1-7 Days, Menses >/= 8 Days, Menses Variable, Cycle > 4 Weeks Between, No Menses for 6 Months, Heavy Menses, Light Menses, Normal Menses, Spotting Between Cycles , S/P Hysterectomy, Menopausal, Post Menopausal, Premenarche, Abnormal Vaginal Bleeding, Dysmenorrhea, Dyspareunia, Genital Lesions, Genital Pruritis, Pelvic Pain, Prolapse Symptoms, Sexual Dysfunction, Vaginal Discharge, Vaginal Dryness , Vaginal Odor, Vaginal Pruritis, Other - Menstruation Menstruation: absent: As Per HPI, Amenorrhea, Amenorrhea/ Control, Currently Menstual, Cycle <21 Days, Cycle >35 Days, Cycle Variable, Menses 1-7 Days, Menses >/= 8 Days, Menses Variable, Cycle > 4 Weeks Between, No Menses for 6 Months, Heavy Menses, Light Menses, Normal Menses, Spotting Between Cycles , S/P Hysterectomy, Menopausal, Post Menopausal, Premenarche, Abnormal Vaginal Bleeding, Dysmenorrhea, Other - Musculoskeletal Musculoskeletal: absent: As Per HPI, Abnormal Gait, Arthralgias, Atrophy, Back Pain, Deformity, Joint Swelling, Limited Range of Motion, Loss of Height, Muscle Cramps, Muscle Weakness, Myalgias, Neck Pain, Numbness, Radiating Pain into Limb, Stiffness, Tingling, Other - Integumentary Integumentary: As Per HPI, Skin Pain, Wounds - Neurological Neurological: absent: As Per HPI, Abnormal Gait, Abnormal Hearing, Abnormal Movements, Abnormal Speech, Behavioral Changes, Burning Sensations, Confusion, Convulsions, Disequilibrium, Dizziness, Numbness, Focal Weakness, Frequent Falls , Headaches, Lack of Coordination, Loss of Vision, Memory Loss, Paresthesias, Radicular Pain, Restless Legs, Sensory Deficit, Syncope, Tingling, Tremor, Vertigo, Weakness, Other Visual Disturbances, Other - Psychiatric Psychiatric: absent: As Per HPI, Abnormal Sleep Pattern, Anhedonia, Anxiety, Auditory Hallucinations, Behavioral Changes, Change in Appetite, Change in Libido, Confusion, Depression, Difficulty Concentrating, Hallucinations, Homicidal Ideation, Hopelessness, Irritability, Memory Loss, Mood Swings, Panic Attacks, Paranoia, Suicidal Ideation, Visual Hallucinations, Tactile Hallucinations, Other - Endocrine Endocrine: absent: As Per HPI, Change in Body Appearance, Change in Libido, Cold Intolorance, Deepening of Voice, Excessive Sweating, Fatigue, Flushing, Heat Intolorance, Increase in Ring/Shoe/Hat Size, Palpitations, Polydipsia, Polyphagia, Polyuria, Other - Hematologic/Lymphatic Hematologic: absent: As Per HPI, Easy Bleeding, Easy Bruising, Lymphadenopathy, Other Past Patient History - Past Medical History & Family History Past Medical History?: Yes - Past Social History Alcohol: Social Drugs: Denies - CARDIAC Hx Cardiac Disorders: No - PULMONARY Hx Respiratory Disorders: No - NEUROLOGICAL Hx Neurological Disorder: No - HEENT Hx HEENT Problems: No - RENAL Hx Chronic Kidney Disease: No - ENDOCRINE/METABOLIC Hx Endocrine Disorders: No - HEMATOLOGICAL/ONCOLOGICAL Hx Blood Disorders: No - INTEGUMENTARY Hx Dermatological Problems: Yes Other/Comment: FOOT ULCER - MUSCULOSKELETAL/RHEUMATOLOGICAL Hx Musculoskeletal Disorders: No - GASTROINTESTINAL Hx Gastrointestinal Disorders: No - GENITOURINARY/GYNECOLOGICAL Hx Genitourinary Disorders: No - PSYCHIATRIC Hx Psychophysiologic Disorder: No Hx Substance Use: No - SURGICAL HISTORY Hx Surgeries: Yes Hx Section: Yes (X3) Hx Musculoskeletal Surgery: Yes (BILATERAL FOOT) Other/Comment: BILATERAL DEBRIDMENT AND GRAFT APPLICATION 10/08/16 - ANESTHESIA Hx Anesthesia: Yes Hx Anesthesia Reactions: No Hx Malignant Hyperthermia: No Meds Allergies/Adverse Reactions: Allergies Allergy/AdvReac Type Severity Reaction Status Date / Time No Known Allergies Allergy Verified 07/21/16 17:34 - Medications Medications: Current Medications Benzocaine/Menthol (Dermoplast) 1 sprays TOP PRN PRN PRN Reason: Pain, Mild (1-3) Bupivacaine HCl (Marcaine 0.5% 50 Ml) 50 ml IJ ONCE ONE Stop: 03/28/17 13:46 Enoxaparin Sodium (Lovenox) 40 mg SC HS [facility] PRN Reason: Protocol Last Admin: 03/26/17 23:18 Dose: 40 mg Fluconazole (Diflucan) 200 mg PO DAILY [facility] Last Admin: 03/27/17 17:52 Dose: 200 mg Vancomycin HCl 1.5 gm/ Sodium (Chloride) 500 mls @ 250 mls/hr IVPB Q12H [facility] Last Admin: 03/28/17 00:22 Dose: 250 mls/hr Cefazolin Sodium 1 gm/ Sodium (Chloride) 100 mls @ 100 mls/hr IVPB ONCE ONE Stop: 03/28/17 14:15 Sodium Chloride (Sodium Chloride 0.9%) 500 mls @ 140 mls/hr IV .Q3H35M [facility] Morphine Sulfate (Morphine) 2 mg IVP Q4 PRN PRN Reason: Pain, moderate (4-7) Last Admin: 03/28/17 00:57 Dose: 2 mg Morphine Sulfate (Morphine) 4 mg IVP Q4 PRN PRN Reason: Pain, severe (8-10) Last Admin: 03/28/17 06:55 Dose: 4 mg Mupirocin (Bactroban Ointment) 1 applic TOP BID [facility] Last Admin: 03/27/17 18:31 Dose: Not Given Physical Exam - Constitutional Appears: Non-toxic, Chronically Ill - Head Exam Head Exam: NORMOCEPHALIC - Eye Exam Eye Exam: PERRL. absent: Scleral icterus - ENT Exam ENT Exam: Mucous Membranes Dry, Normal External Ear Exam - Neck Exam Neck exam: Negative for: Lymphadenopathy, Thyromegaly - Respiratory Exam Respiratory Exam: Decreased Breath Sounds, Clear to Auscultation Bilateral - Cardiovascular Exam Cardiovascular Exam: REGULAR RHYTHM, +S1, +S2 - GI/Abdominal Exam GI & Abdominal Exam: Diminished Bowel Sounds, Soft. absent: Tenderness - Rectal Exam Rectal Exam: Deferred - Exam Exam: NORMAL INSPECTION - Extremities Exam Extremities exam: Positive for: pedal edema, tenderness, pedal pulses present. Negative for: calf tenderness Additional comments: bilat venous ulcers - Back Exam Back exam: absent: CVA tenderness (L), CVA tenderness (R) - Neurological Exam Neurological exam: Alert, CN II-XII Intact, Oriented x3, Reflexes Normal - Psychiatric Exam Psychiatric exam: Normal Mood - Skin Skin Exam: Dry Results - Vital Signs Recent Vital Signs: Last Vital Signs Temp 97.9 F 03/28/17 08:42 Pulse 63 03/28/17 08:42 Resp 20 03/28/17 08:42 BP 140/78 03/28/17 08:42 Pulse Ox 98 03/28/17 08:42 - Labs Result Diagrams: 03/28/17 05:30 03/28/17 05:30 Labs: Laboratory Results - last 24 hr 03/27/17 03/27/17 03/27/17 12:18 12:18 15:00 WBC RBC Hgb Hct MCV MCH MCHC RDW Plt Count MPV Neut % (Auto) Lymph % (Auto) [place] % (Auto) Eos % (Auto) Baso % (Auto) Neut # Lymph # [place] # Eos # Baso # PT INR APTT Sodium Potassium Chloride Carbon Dioxide Anion Gap BUN Creatinine Est GFR ( Amer) Est GFR (Non-Af Amer) Random Glucose Hemoglobin A1c Calcium Triglycerides Cholesterol LDL Cholesterol Direct HDL Cholesterol Urine Opiates Screen Positive H Urine Methadone Screen Negative Ur Barbiturates Screen Negative Ur Phencyclidine Scrn Negative Ur Amphetamines Screen Negative U Benzodiazepines Scrn Negative U Oth Cocaine Metabols Negative U Cannabinoids Screen Negative Hepatitis C Antibody Negative HIV 1&2 Antibody Screen Negative 03/28/17 03/28/17 03/28/17 05:30 05:30 05:30 WBC 9.7 RBC 5.10 Hgb 14.7 Hct 43.5 MCV 85.4 MCH 28.8 MCHC 33.8 RDW 13.6 Plt Count 332 MPV 7.8 Neut % (Auto) 63.1 Lymph % (Auto) 27.2 Raw[place] % (Auto) 7.2 Eos % (Auto) 1.5 Baso % (Auto) 1.0 Neut # 6.1 Lymph # 2.6 [place]ins # 0.7 Eos # 0.1 Baso # 0.1 PT INR APTT Sodium 140 Potassium 4.7 Chloride 104 Carbon Dioxide 28 Anion Gap 13 BUN 13 Creatinine 0.8 Est GFR ( Amer) > 60 Est GFR (Non-Af Amer) > 60 Random Glucose 94 Hemoglobin A1c 5.3 Calcium 8.9 Triglycerides 116 Cholesterol 161 LDL Cholesterol Direct 103 HDL Cholesterol 33 Urine Opiates Screen Urine Methadone Screen Ur Barbiturates Screen Ur Phencyclidine Scrn Ur Amphetamines Screen U Benzodiazepines Scrn U Oth Cocaine Metabols U Cannabinoids Screen Hepatitis C Antibody HIV 1&2 Antibody Screen 03/28/17 05:30 WBC RBC Hgb Hct MCV MCH MCHC RDW Plt Count MPV Neut % (Auto) Lymph % (Auto) [place] % (Auto) Eos % (Auto) Baso % (Auto) Neut # Lymph # [place] # Eos # Baso # PT 11.3 INR 1.0 APTT 28.5 Sodium Potassium Chloride Carbon Dioxide Anion Gap BUN Creatinine Est GFR ( Amer) Est GFR (Non-Af Amer) Random Glucose Hemoglobin A1c Calcium Triglycerides Cholesterol LDL Cholesterol Direct HDL Cholesterol Urine Opiates Screen Urine Methadone Screen Ur Barbiturates Screen Ur Phencyclidine Scrn Ur Amphetamines Screen U Benzodiazepines Scrn U Oth Cocaine Metabols U Cannabinoids Screen Hepatitis C Antibody HIV 1&2 Antibody Screen Assessment & Plan (1) Wounds, multiple open, lower extremity Status: Acute Priority: High - Assessment and Plan (Free Text) Assessment: for or/ debridement cont iv antibiotics check cultures
[2017-03-28] MEDS ORDERED: Bupivacaine 0.5% 50 ML IJ ONE ×2 (13:45→16:50)
[2017-03-28] MEDS ORDERED: Lidocaine 1% Inj (20ml) ONE (16:23)
[2017-03-28] MEDS ORDERED: Bupivacaine 0.5% Inj(30mL) ONE (16:23)
[2017-03-28] MEDS ORDERED: Propofol 10 mg/ml Inj (20 ML) ONE (16:44)
[2017-03-28] MEDS ORDERED: Midazolam 2 MG/2 ML VIAL ONE (16:45)
[2017-03-28] MEDS ORDERED: Lidocaine 2% PF (10 ml) Amp ONE (16:46)
[2017-03-28] MEDS ORDERED: Bacitracin OINT 15GM TOP ONE (17:43)
[2017-03-28] MEDS ORDERED: Sodium Chloride 0.9% 1,000 ML IV ONE (17:43)
--- NOTE | 2017-03-28 17:55 | PCM.SURG1 ---
Surgeon's Initial Post Op Note - Surgeon's Notes Surgeon: Dr. Cheo Randle Motor Tester: Dr. Melvin, Dr. aMk, Dr. Hassan Type of Anesthesia: General LMA Anesthesia Administered By: Dr. Spears Pre-Operative Diagnosis: B/L venous stasis ulceration Operative Findings: see dictation Post-Operative Diagnosis: same. M: Acell porcine graft, 4-0 vicryl Operation Performed: mechanical debridement of b/l wounds on medial ankle, removal of non-viable soft tissue, application of a graft Specimen/Specimens Removed: none Estimated Blood Loss: EBL {In ML}: 5 Blood Products Given: N/A Drains Used: No Drains Post-Op Condition: Good Date of Surgery/Procedure: 03/28/17 Time of Surgery/Procedure: 17:56
[2017-03-28] MEDS ORDERED: HYDROmorphone 0.5 mg/0.5 ml ISec ONE (17:57)
[2017-03-28] MEDS: HYDROmorphone 0.5 mg/0.5 ml ISec IVP PRN ×4 (18:00→18:45)
[2017-03-28] MEDS ORDERED: Vancomycin 1.5 GM in Sodium Chloride 0.9% 500 ML IVPB ONE (18:00)
[2017-03-28] MEDS ORDERED: DiphenhydrAMINE 50 mg/ml Inj IVP STA (19:18)
[2017-03-28] MEDS ORDERED: Hydrocortisone- 100 MG in Sodium Chloride 0.9% 100 ML IV ONE (19:40)
--- NOTE | 2017-03-28 20:45 | CP.PCM.PN ---
Subjective - Date & Time of Evaluation Date of Evaluation: 03/28/17 Time of Evaluation: 20:39 - Subjective Subjective: Approximately 90 minutes after arrival to PACU alerted by nursing staff that patient exhibiting symptoms c/w allergic reaction. Patient had redness, mild/ moderate pruritis, but no SOB, upper airway edema or wheezing. Vancomycin was stopped and benadryl & solucortef ordered. Medicine team called to evaluate the patient and after approximately 45min patient appeared better. Objective - Vital Signs/Intake and Output Vital Signs (last 24 hours): Temp Pulse Resp BP Pulse Ox 97 F L 86 18 122/72 99 03/28/17 18:00 03/28/17 19:30 03/28/17 19:30 03/28/17 19:30 03/28/17 19:30 Intake and Output: 03/28/17 03/29/17 18:59 06:59 Intake Total 375 Balance 375 - Medications Medications: Current Medications Acetaminophen (Tylenol 325mg Tab) 650 mg PO Q4 PRN PRN Reason: Pain, Mild (1-3) Benzocaine/Menthol (Dermoplast) 1 sprays TOP PRN PRN PRN Reason: Pain, Mild (1-3) Enoxaparin Sodium (Lovenox) 40 mg SC HS PAOLA PRN Reason: Protocol Last Admin: 03/26/17 23:18 Dose: 40 mg Fluconazole (Diflucan) 200 mg PO DAILY [facility] Last Admin: 03/27/17 17:52 Dose: 200 mg Vancomycin HCl 1.5 gm/ Sodium (Chloride) 500 mls @ 250 mls/hr IVPB Q12H [facility] Last Admin: 03/28/17 15:34 Dose: 250 mls/hr Sodium Chloride (Sodium Chloride 0.9%) 500 mls @ 140 mls/hr IV .Q3H35M [facility] Last Admin: 03/28/17 14:09 Dose: 140 mls/hr Lactated Ringer's (Lactated Ringer's) 1,000 mls @ 100 mls/hr IV .Q10H [facility] Morphine Sulfate (Morphine) 2 mg IVP Q4 PRN PRN Reason: Pain, moderate (4-7) Last Admin: 03/28/17 00:57 Dose: 2 mg Morphine Sulfate (Morphine) 4 mg IVP Q4 PRN PRN Reason: Pain, severe (8-10) Last Admin: 03/28/17 13:43 Dose: 4 mg Mupirocin (Bactroban Ointment) 1 applic TOP BID [facility] Last Admin: 03/28/17 09:01 Dose: Not Given - Labs Labs: 03/28/17 05:30 03/28/17 05:30 PT 11.3 Seconds (9.8-13.1) 03/28/17 05:30 INR 1.0 (0.9-1.2) 03/28/17 05:30 APTT 28.5 Seconds (25.6-37.1) 03/28/17 05:30
[2017-03-29] MEDS: Clindamycin 600 MG in Sodium Chloride 0.9% 100 ML IVPB SCH ×2 (00:43→09:26)
[2017-03-29] MEDS: Lactated Ringer's 1,000 ML IV SCH ×2 (03:08→06:59)
[2017-03-29] MEDS: Morphine 4 MG/ML VIAL IVP PRN ×3 (04:30→09:23)
--- NOTE | 2017-03-29 05:20 | CP.PCM.PCO ---
Physician Communication Note - Physician Communication Note Physician Communication Note: d/c Vanco d/t rash give benadryl. Now -fever -n/v/ d -rash +3/10pain -SOB
[2017-03-29] MEDS ORDERED: Oxycodone/Acetaminophen 5/325 mg Tab PO ONE (11:26)
--- NOTE | 2017-03-29 13:11 | CP.PCM.DIS ---
Provider - Provider Date of Admission: 03/26/17 18:19 Attending physician: Janice Araujo MD Primary care physician: Shaik Mcintosh Consults: Dr. Mancini- ID; Dr. Valle- cardiology; Dr. Randle-podiatry Time Spent in preparation of Discharge (in minutes): 30 Diagnosis - Discharge Diagnosis (1) Wounds, multiple open, lower extremity Status: Chronic Priority: Medium (2) Status post debridement Status: Acute Priority: Medium Hospital Course - Lab Results Lab Results: Micro Results 03/27/17 08:20 Ankle - Left Gram Stain - Final 03/27/17 08:20 Ankle - Left Wound Culture - Preliminary Gram Negative Artur Gram Positive Cocci 03/27/17 08:20 Ankle - Right Gram Stain - Final 03/27/17 08:20 Ankle - Right Wound Culture - Preliminary Gram Negative Artur Most Recent Lab Values WBC 9.7 K/uL (4.8-10.8) 03/28/17 05:30 RBC 5.10 Mil/uL (3.80-5.20) 03/28/17 05:30 Hgb 14.7 g/dL (12.0-16.0) 03/28/17 05:30 Hct 43.5 % (34.0-47.0) 03/28/17 05:30 MCV 85.4 fl (81.0-99.0) 03/28/17 05:30 MCH 28.8 pg (27.0-31.0) 03/28/17 05:30 MCHC 33.8 g/dL (33.0-37.0) 03/28/17 05:30 RDW 13.6 % (11.5-14.5) 03/28/17 05:30 Plt Count 332 K/uL (130-400) 03/28/17 05:30 MPV 7.8 fl (7.2-11.7) 03/28/17 05:30 Neut % (Auto) 63.1 % (50.0-75.0) 03/28/17 05:30 Lymph % (Auto) 27.2 % (20.0-40.0) 03/28/17 05:30 Moffat % (Auto) 7.2 % (0.0-10.0) 03/28/17 05:30 Eos % (Auto) 1.5 % (0.0-4.0) 03/28/17 05:30 Baso % (Auto) 1.0 % (0.0-2.0) 03/28/17 05:30 Neut # 6.1 K/uL (1.8-7.0) 03/28/17 05:30 Lymph # 2.6 K/uL (1.0-4.3) 03/28/17 05:30 Moffat # 0.7 K/uL (0.0-0.8) 03/28/17 05:30 Eos # 0.1 K/uL (0.0-0.7) 03/28/17 05:30 Baso # 0.1 K/uL (0.0-0.2) 03/28/17 05:30 PT 11.3 Seconds (9.8-13.1) 03/28/17 05:30 INR 1.0 (0.9-1.2) 03/28/17 05:30 APTT 28.5 Seconds (25.6-37.1) 03/28/17 05:30 Sodium 140 mmol/l (132-148) 03/28/17 05:30 Potassium 4.7 MMOL/L (3.6-5.0) 03/28/17 05:30 Chloride 104 mmol/L (98-107) 03/28/17 05:30 Carbon Dioxide 28 mmol/L (22-30) 03/28/17 05:30 Anion Gap 13 (10-20) 03/28/17 05:30 BUN 13 mg/dl (7-17) 03/28/17 05:30 Creatinine 0.8 mg/dL (0.7-1.2) 03/28/17 05:30 Est GFR ( Amer) > 60 03/28/17 05:30 Est GFR (Non-Af Amer) > 60 03/28/17 05:30 Random Glucose 94 mg/dL (65-105) 03/28/17 05:30 Hemoglobin A1c 5.3 % (4.2-6.5) 03/28/17 05:30 Calcium 8.9 mg/dL (8.4-10.2) 03/28/17 05:30 Total Bilirubin 1.0 mg/dl (0.2-1.3) 03/26/17 18:15 AST 27 U/L (14-36) 03/26/17 18:15 ALT 34 U/L (9-52) 03/26/17 18:15 Alkaline Phosphatase 72 U/L (38-126) 03/26/17 18:15 Troponin I < 0.0120 ng/mL (0.00-0.120) 03/26/17 18:15 Total Protein 7.9 G/DL (6.3-8.2) 03/26/17 18:15 Albumin 4.4 g/dL (3.5-5.0) 03/26/17 18:15 Globulin 3.5 gm/dL (2.2-3.9) 03/26/17 18:15 Albumin/Globulin Ratio 1.3 (1.0-2.1) 03/26/17 18:15 Triglycerides 116 mg/DL (0-149) 03/28/17 05:30 Cholesterol 161 mg/dL (0-199) 03/28/17 05:30 LDL Cholesterol Direct 103 mg/dL (0-129) 03/28/17 05:30 HDL Cholesterol 33 MG/DL (30-70) 03/28/17 05:30 Vancomycin Trough 6.3 ug/mL (5.0-10.0) 03/28/17 06:00 Urine Opiates Screen Positive (NEGATIVE) H 03/27/17 15:00 Urine Methadone Screen Negative (NEGATIVE) 03/27/17 15:00 Ur Barbiturates Screen Negative (NEGATIVE) 03/27/17 15:00 Ur Phencyclidine Scrn Negative (NEGATIVE) 03/27/17 15:00 Ur Amphetamines Screen Negative (NEGATIVE) 03/27/17 15:00 U Benzodiazepines Scrn Negative (NEGATIVE) 03/27/17 15:00 U Oth Cocaine Metabols Negative (NEGATIVE) 03/27/17 15:00 U Cannabinoids Screen Negative (NEGATIVE) 03/27/17 15:00 Hepatitis C Antibody Negative (NEGATIVE) 03/27/17 12:18 HIV 1&2 Antibody Screen Negative (NEGATIVE) 03/27/17 12:18 - Hospital Course Hospital Course: 42 yr old F is POD # 1 s/p OR debridement of b/l LE ulcers. Patient was admitted for worsening infected bilateral lower extremity ulcers located proximal to medial malleolus with PMHx of chronic lower extremity ulcers x 11yrs. Patients b/l LE pain was controlled with medication, was treated with IV antibiotics. ID, Podiatry and Cardiology were on board. Patient is stable for discharge with instructions to resume home meds, Keep dressing clean/dry/intact , Take pain medication as needed for pain, Follow up in Wound Clinic on Friday04/01/17, Follow up with your PMD Dr. Rehman in 1-2 weeks, Take Fluconzaole as prescribed, ER precautions reviewed. - Date & Time of H&P Date of H&P: 03/26/17 Time of H&P: 19:29 Discharge Exam - Head Exam Head Exam: ATRAUMATIC, NORMOCEPHALIC - Eye Exam Eye Exam: EOMI, PERRL - ENT Exam ENT Exam: Mucous Membranes Moist - Neck Exam Neck exam: Full Rom - Respiratory Exam Respiratory Exam: Clear to PA & Lateral, NORMAL BREATHING PATTERN - Cardiovascular Exam Cardiovascular Exam: REGULAR RHYTHM, +S1, +S2 - GI/Abdominal Exam GI & Abdominal Exam: Normal Bowel Sounds, Soft (obese). absent: Distended, Tenderness - Extremities Exam Extremities exam: full ROM (no pedal edema, no tenderness, b/l lower extremities wrapped in meghan bandage, per podiatry : medial ankle ulcers debrided , bilateral Acell porcine grafts placed) - Back Exam Back exam: absent: CVA tenderness (L), CVA tenderness (R) - Neurological Exam Neurological exam: Alert, CN II-XII Intact - Psychiatric Exam Psychiatric exam: Normal Affect, Normal Mood - Skin Skin Exam: Dry, Intact, Warm Discharge Plan - Discharge Medications Prescriptions: Fluconazole [Diflucan] 200 mg PO DAILY #5 tab - Follow Up Plan Condition: STABLE Disposition: HOME/ ROUTINE Instructions: Shopping for a Healthy Diet (DC), Peripheral Vascular Disease (DC ) Additional Instructions: -Keep dressing clean/dry/intact -Take pain medication as needed for pain -Follow up in Wound Clinic on Friday04/01/17 -Follow up with your PMD Dr. Rehman in 1-2 weeks -Take Fluconzaole as prescribed -ER precautions reviewed Referrals: Cheo Randle DPM [Staff Provider] - Shaik Rehman MD [Medical Doctor] -
--- NOTE | 2017-03-29 14:06 | CP.PCM.PN ---
Subjective - Date & Time of Evaluation Date of Evaluation: 03/29/17 Time of Evaluation: 10:00 - Subjective Subjective: 42 y/o female seen at bedside 1 day s/p wound debridement and graft placement for venous stasis ulceration on ankle bilaterally. Pt is in NAD and is AAOx3. Pt states that she had pain in her ankle overnight but she was able to manage it well. Pt denies of any acute overnight events. Pt denies of any recent F/N/V/ C/SOB. Pt's dressing is clean, dry and intact. Pt denies of any new pedal complains. Objective - Vital Signs/Intake and Output Vital Signs (last 24 hours): Temp Pulse Resp BP Pulse Ox 98.9 F 66 18 111/72 97 03/29/17 07:23 03/29/17 07:23 03/29/17 07:23 03/29/17 07:23 03/29/17 07:23 - Medications Medications: Current Medications Acetaminophen (Tylenol 325mg Tab) 650 mg PO Q4 PRN PRN Reason: Pain, Mild (1-3) Benzocaine/Menthol (Dermoplast) 1 sprays TOP PRN PRN PRN Reason: Pain, Mild (1-3) Enoxaparin Sodium (Lovenox) 40 mg SC HS [facility] PRN Reason: Protocol Last Admin: 03/26/17 23:18 Dose: 40 mg Fluconazole (Diflucan) 200 mg PO DAILY [facility] Last Admin: 03/29/17 09:27 Dose: 200 mg Sodium Chloride (Sodium Chloride 0.9%) 500 mls @ 140 mls/hr IV .Q3H35M [facility] Last Admin: 03/28/17 14:09 Dose: 140 mls/hr Lactated Ringer's (Lactated Ringer's) 1,000 mls @ 100 mls/hr IV .Q10H [facility] Last Admin: 03/29/17 06:59 Dose: Not Given Clindamycin Phosphate 600 mg/ (Sodium Chloride) 104 mls @ 104 mls/hr IVPB Q8 [facility] Last Admin: 03/29/17 09:26 Dose: 104 mls/hr Morphine Sulfate (Morphine) 2 mg IVP Q4 PRN PRN Reason: Pain, moderate (4-7) Last Admin: 03/29/17 09:23 Dose: 2 mg Morphine Sulfate (Morphine) 4 mg IVP Q4 PRN PRN Reason: Pain, severe (8-10) Last Admin: 03/29/17 07:25 Dose: 4 mg Mupirocin (Bactroban Ointment) 1 applic TOP BID [facility] Last Admin: 03/29/17 09:32 Dose: Not Given - Labs Labs: 03/28/17 05:30 03/28/17 05:30 PT 11.3 Seconds (9.8-13.1) 03/28/17 05:30 INR 1.0 (0.9-1.2) 03/28/17 05:30 APTT 28.5 Seconds (25.6-37.1) 03/28/17 05:30 - Constitutional Appears: Well, Non-toxic, No Acute Distress - Extremities Exam Additional comments: Unable to obtain physical exam due to the dressing in place. Pt had a graft placement. Pt's dressing is dry, clean and intact. No strike through noted from the dressing. - Neurological Exam Neurological Exam: Alert, Awake, Oriented x3 - Psychiatric Exam Psychiatric exam: Normal Affect, Normal Mood Assessment and Plan - Assessment and Plan (Free Text) Assessment: 42 y/o female seen at bedside 1 day s/p wound debridement and graft placement for venous stasis ulcer on medial ankle bilaterally Plan: Pt evaluated and chart reviewed Pt discussed in details with attending Dr. Randle Vitals and labs reviewed (afebrile) Dressing not changed due to the graft placement Pt given prescription for percocet PRN pain Pt educated to follow up with Dr. Randle in wound care clinic on Friday Pt demonstrated verbal understanding Pt stable from podiatry standpoint Podiatry to follow pt while in-house
[2017-03-29] MEDS ORDERED: Oxycodone/Acetaminophen 5/325 mg Tab PO STA (15:39)
[2017-03-29 16:38] VITALS: O2SAT 96
[2017-03-29 16:41] VITALS: BP 121/78; PULSE 71; RESP 20; TEMP 98
--- NOTE | 2017-03-31 14:51 | PCM.OP ---
Operative Report - Operative Report Date of Surgery/Procedure: 03/28/17 Time of Surgery/Procedure: 16:30 Surgeon: Cheo Randle DPM Marketing Campaign Analyst: Natasha Melvin PGY-1, Kathryn Hassan PGY-1, Nicholas Mak PGY-1 Anesthesia/Sedation: LMA with local Pre-Operative Diagnosis: bilateral non-healing medial malleolar venous stasis ulcerations Post-Operative Diagnosis: bilateral non-healing medial malleolar venous stasis ulcerations Indication for Surgery: The patient is a 42 year old female with the above diagnoses. The patient has exhausted all conservative treatment at this time and now requires surgical intervention. The patient signed the consent after careful explanation of risks, benefits, complication and alternatives for surgical procedure. No guarantees were given nor implied. NPO status was confirmed prior to taking patient to the OR. Operative Findings: see operative report Procedure/Operation Description: The patient was brought in to the operating room and placed on the operating room table in a supine position. Timeout was performed for identification of the correct patient and procedure. After induction of LMA anesthesia, a local block consisting of 20 mL of a 1:1 mixture of 1% lidocaine plain and 0.5% marcaine plain into the left foot and an additional 20 mL of 1:1 mixture of 1% lidocaine plain and 0.5% marcaine plain into the right foot. Bilateral lower extremities were then prepped and draped in normal sterile manner and the procedure began. No tourniquet was used during the procedure. Attention was then directed to the medial aspect of the left ankle where the ulcer was located. The ulcer measured approximately 6.2 cm x 3.3cm x 0.3 cm. Using the [employer] curette handle, on setting 7, the ulcer was excisonaly debrided of all fibrotic and non-viable tissue until fresh and healthy bleeding granular tissue appeared. Next, the wound bed was aggressively scrubbed with a chlorhexidine scrub brush and gently dried with a lap sponge. At this time, a double layer 7cm x 10 cm ACell graft was measured to the size of the wound bed and affixed to the wound with #4-0 Vicryl suture. Attention was then directed to the medial aspect of the right ankle where a second venous stasis ulcer was located. The ulcer measured approximately 4.3 cm x 3.0cm x 0.3 cm. Using the [employer] curette handle, on setting 7, the ulcer was excisonaly debrided of all fibrotic and non-viable tissue until fresh and healthy bleeding granular tissue appeared. Next, the wound bed was aggressively scrubbed with a chlorhexidine scrub brush and gently dried with a lap sponge. At this time, a three layer 7cm x 10 cm ACell graft was measured to the size of the wound bed and affixed to the wound with #4-0 Vicryl suture. The graft and ulceration sites were dressed with Adaptic, bacitracin ointment, 4x4 gauze and Kerlix. A double layer Lomeli compression dressing of Webril and MARYANN bandage was later applied for postoperative dressing to bilateral lower extremities in the post anesthesia care unit. Estimated Blood Loss: 5cc Blood Replaced: none Complications: none Discharge & Condition: The patient tolerated the anesthesia and procedure well and was escorted to the recovery room with vital signs stable and neurovascular status intact to the left LE. Patient is to be non weight bearing to both lower extremities. Patient will continue to be followed while in house.
== END 2017-03-29 17:03 | disposition home or self-care (01) | DRG 120 ==
LOC: H.ER 15:35 → H.ERHOLD 18:19 → H.MEDSURG1 20:53
PROVIDERS: ADMIT Family Medicine Geriatric Medicine; ATTEND Family Medicine Geriatric Medicine
PROC: 0HRMXK3 Replacement of Right Foot Skin with Nonautologous Tissue Substitute, Full Thickness, External Approach (ICD-10-PCS; 2017-03-28)
PROC: 0JBQ0ZZ Excision of Right Foot Subcutaneous Tissue and Fascia, Open Approach (ICD-10-PCS; 2017-03-28)
PROC: 0HRNXK3 Replacement of Left Foot Skin with Nonautologous Tissue Substitute, Full Thickness, External Approach (ICD-10-PCS; 2017-03-28)
PROC: 0JBR0ZZ Excision of Left Foot Subcutaneous Tissue and Fascia, Open Approach (ICD-10-PCS; principal; 2017-03-28 16:00)
DX: I87.8 Other specified disorders of veins (principal); B37.0 Candidal stomatitis; L97.329 Non-pressure chronic ulcer of left ankle with unspecified severity; L97.319 Non-pressure chronic ulcer of right ankle with unspecified severity; Z86.718 Personal history of other venous thrombosis and embolism; L29.9 Pruritus, unspecified; T36.8X5A Adverse effect of other systemic antibiotics, initial encounter

== ENCOUNTER 2018-12-08 18:16 | Emergency (ER) | payer MEDICAID ==
[2018-12-08 18:17] VITALS: BMI 28.3
[2018-12-08 18:47] VITALS: TEMP 98.2
--- NOTE | 2018-12-08 19:32 | ED PDOC ---
Lower Extremity Pain/Injury Time Seen by Provider: 12/08/18 19:16 Chief Complaint (Nursing): Lower Extremity Problem/Injury History Per: Patient History/Exam Limitations: no limitations Onset/Duration Of Symptoms: Hrs Additional Complaint(s): 43 year old with chronic foot ulcers presenting with "I'm here because Dr. Randle told me to come." Patient states she has had chronic ulcers of her feet for "years" and was told that she was to come to the E.D. today to be evaluated for possible surgery tomorrow. Patient states her drainage is slightly more than usual. Denies fevers, worsening pain than normal, chills, nausea, vomiting, diarrhea. Energy Efficiency Engineer: Dr. Randle Past Medical History Vital Signs: Last Vital Signs Temp 98.2 F 12/08/18 18:44 Pulse 77 12/08/18 18:44 Resp 16 12/08/18 18:44 BP 143/96 H 12/08/18 18:44 Pulse Ox 97 12/08/18 18:44 - Medical History PMH: Denies: Chronic Kidney Disease - Family History Family History: States: Unknown Family Hx - Immunization History Hx Tetanus Toxoid Vaccination: No Hx Influenza Vaccination: No Hx Pneumococcal Vaccination: No - Home Medications Home Medications: Ambulatory Orders Medication Instructions Recorded Acetaminophen with Codeine 1 tab PO Q4H PRN 05/19/18 [Tylenol with Codeine #4 Tablet] - Allergies Allergies/Adverse Reactions: Allergies Allergy/AdvReac Type Severity Reaction Status Date / Time No Known Allergies Allergy Verified 12/08/18 18:44 Review of Systems ROS Statement: Except As Marked, All Systems Reviewed And Found Negative Musculoskeletal: Positive for: Foot Pain Physical Exam - Reviewed Nursing Documentation Reviewed: Yes Vital Signs Reviewed: Yes - Physical Exam Appears: Positive for: Well, Non-toxic, No Acute Distress Head Exam: Positive for: ATRAUMATIC, NORMAL INSPECTION, NORMOCEPHALIC Skin: Positive for: Normal Color, Warm, DRY Eye Exam: Positive for: EOMI, Normal appearance, PERRL ENT: Positive for: Normal ENT Inspection Neck: Positive for: Normal, Painless ROM Cardiovascular/Chest: Positive for: Regular Rate, Rhythm Respiratory: Positive for: CNT, Normal Breath Sounds Gastrointestinal/Abdominal: Positive for: Normal Exam, Soft Back: Positive for: Normal Inspection Extremity: Positive for: Other (Chronic lower extremity swelling, wounds dressed, cleaned (patient is refusing to allow us to take down dressing)) Neurological/Psych: Positive for: Awake, Alert, Normal Tone - ECG O2 Sat by Pulse Oximetry: 97 Pulse Ox Interpretation: Normal Medical Decision Making Medical Decision Making: A/P: Patient with chronic foot ulcers presenting with foot ulcers, sent to E.D. for possibly admission --Patient seen by Dr. Felix, podiatry resident, refused to allow her to take down dressing for thorough inspection --Case was discussed by by resident with Dr. Randle who recommends patient to return to the E.D. on Thurdsay before noon for re-evaluation for admission --Discharged in well appearing, good condition Disposition - Clinical Impression Clinical Impression: Wounds, multiple open, lower extremity - Disposition Referrals: Cheo Randle DPM [Staff Provider] - Disposition: Routine/Home Disposition Time: 19:34 Condition: IMPROVED Instructions: Wound Care Forms: [facility] (Bulgarian) Print Language: SERBIAN
[2018-12-08 19:54] LABS: BASO # 0.1 K/uL (0.0-0.2); BASO % 0.9 % (0.0-2.0); EOS # 0.1 K/uL (0.0-0.7); EOS % 1.8 % (0.0-4.0); HEMOGLOBIN 14.6 g/dL (12.0-16.0); LYMPH # 1.8 K/uL (1.0-4.3); LYMPH % 22.6 % (20.0-40.0); MEAN CELL VOLUME 85.6 fl (81.0-99.0); MEAN CORPUSCULAR HEMOGLOBIN 28.8 pg (27.0-31.0); MEAN CORPUSCULAR HGB CONC 33.6 g/dL (33.0-37.0); MEAN PLATELET VOLUME 7.6 fl (7.2-11.7); MONO # 0.5 K/uL (0.0-0.8); MONO % 6.6 % (0.0-10.0); NEUT # 5.5 K/uL (1.8-7.0); NEUT % 68.1 % (50.0-75.0); NRBC % 0.1 % (0.0-0.0); RBC 5.07 Mil/uL (3.80-5.20); RED CELL DISTRIBUTION WIDTH 13.3 % (11.5-14.5)
[2018-12-08 20:09] LABS: BLOOD UREA NITROGEN 11 mg/dl (7-17); CALCIUM 9.5 mg/dL (8.4-10.2); GFR NON-AFRICAN AMERICAN > 60
[2018-12-08 23:18] VITALS: BP 136/89; PULSE 69; RESP 18; O2SAT 98
--- NOTE | 2018-12-09 13:16 | CP.PCM.CON ---
History of Present Illness - History of Present Illness History of Present Illness: 43 yo female seen and evaluate Past Patient History - Infectious Disease Hx of Infectious Diseases: None - Past Medical History & Family History Past Medical History?: Yes - Past Social History Smoking Status: Former Smoker - CARDIAC Hx Cardiac Disorders: Yes Hx Circulatory Problems: Yes (Bilat foot venous insufficiency) - PULMONARY Hx Respiratory Disorders: No - NEUROLOGICAL Hx Neurological Disorder: No - HEENT Hx HEENT Problems: No - RENAL Hx Chronic Kidney Disease: No - ENDOCRINE/METABOLIC Hx Endocrine Disorders: No - HEMATOLOGICAL/ONCOLOGICAL Hx Blood Disorders: No - INTEGUMENTARY Hx Dermatological Problems: Yes Other/Comment: FOOT ULCERs chronic x 5 years - MUSCULOSKELETAL/RHEUMATOLOGICAL Hx Musculoskeletal Disorders: No - GASTROINTESTINAL Hx Gastrointestinal Disorders: No - GENITOURINARY/GYNECOLOGICAL Hx Genitourinary Disorders: No - PSYCHIATRIC Hx Psychophysiologic Disorder: No Hx Substance Use: No - SURGICAL HISTORY Hx Surgeries: Yes Hx Section: Yes (X3) Hx Musculoskeletal Surgery: Yes (BILATERAL FOOT) Other/Comment: BILATERAL DEBRIDMENT AND GRAFT APPLICATION 10/08/16 - ANESTHESIA Hx Anesthesia: Yes Hx Anesthesia Reactions: No Hx Malignant Hyperthermia: No Meds Allergies/Adverse Reactions: Allergies Allergy/AdvReac Type Severity Reaction Status Date / Time No Known Allergies Allergy Verified 12/08/18 18:44 Results - Vital Signs Recent Vital Signs: Last Vital Signs Temp 98.2 F 12/08/18 20:05 Pulse 69 12/08/18 20:05 Resp 18 12/08/18 20:05 BP 136/89 12/08/18 20:05 Pulse Ox 98 12/08/18 20:05 - Labs Result Diagrams: 12/08/18 19:38 12/08/18 19:38 Labs: Laboratory Results - last 24 hr 12/08/18 12/08/18 19:38 19:38 WBC 8.0 RBC 5.07 Hgb 14.6 Hct 43.4 MCV 85.6 MCH 28.8 MCHC 33.6 RDW 13.3 Plt Count 334 MPV 7.6 Neut % (Auto) 68.1 Lymph % (Auto) 22.6 [place] % (Auto) 6.6 Eos % (Auto) 1.8 Baso % (Auto) 0.9 Neut # (Auto) 5.5 Lymph # (Auto) 1.8 [place] # (Auto) 0.5 Eos # (Auto) 0.1 Baso # (Auto) 0.1 Sodium 139 Potassium 4.5 Chloride 98 Carbon Dioxide 25 Anion Gap 21 H BUN 11 Creatinine 0.6 L Est GFR ( Amer) > 60 Est GFR (Non-Af Amer) > 60 Random Glucose 91 Calcium 9.5
--- NOTE | 2018-12-09 13:19 | CP.PCM.CON ---
History of Present Illness - History of Present Illness History of Present Illness: Podiatry consult note for Dr. Maurer, 43 year old female seen and evaluated for bilateral chronic ulcers. Patient states she was advised to come to the ED by her pressure steamer tender, Dr. Maurer. States her dressings for her legs were just changed and Dr. Maurer would like to take her into surgery for debridement of the wounds. Patient states her drainage is slightly more than usual. Denies fevers, worsening pain than normal, chills, nausea, vomiting, diarrhea.Dneies any other complains. Director Of Rotc: Dr. Maurer PMHx: denies PSHx: wound debridement 1 year ago SHx: denies Allergies: none Past Patient History - Infectious Disease Hx of Infectious Diseases: None - Past Medical History & Family History Past Medical History?: Yes - Past Social History Smoking Status: Former Smoker - CARDIAC Hx Cardiac Disorders: Yes Hx Circulatory Problems: Yes (Bilat foot venous insufficiency) - PULMONARY Hx Respiratory Disorders: No - NEUROLOGICAL Hx Neurological Disorder: No - HEENT Hx HEENT Problems: No - RENAL Hx Chronic Kidney Disease: No - ENDOCRINE/METABOLIC Hx Endocrine Disorders: No - HEMATOLOGICAL/ONCOLOGICAL Hx Blood Disorders: No - INTEGUMENTARY Hx Dermatological Problems: Yes Other/Comment: FOOT ULCERs chronic x 5 years - MUSCULOSKELETAL/RHEUMATOLOGICAL Hx Musculoskeletal Disorders: No - GASTROINTESTINAL Hx Gastrointestinal Disorders: No - GENITOURINARY/GYNECOLOGICAL Hx Genitourinary Disorders: No - PSYCHIATRIC Hx Psychophysiologic Disorder: No Hx Substance Use: No - SURGICAL HISTORY Hx Surgeries: Yes Hx Section: Yes (X3) Hx Musculoskeletal Surgery: Yes (BILATERAL FOOT) Other/Comment: BILATERAL DEBRIDMENT AND GRAFT APPLICATION 10/08/16 - ANESTHESIA Hx Anesthesia: Yes Hx Anesthesia Reactions: No Hx Malignant Hyperthermia: No Meds Allergies/Adverse Reactions: Allergies Allergy/AdvReac Type Severity Reaction Status Date / Time No Known Allergies Allergy Verified 12/08/18 18:44 Physical Exam - Constitutional Appears: Well, Non-toxic, No Acute Distress - Head Exam Head Exam: ATRAUMATIC, NORMOCEPHALIC - Eye Exam Pupil Exam: NORMAL ACCOMODATION - ENT Exam ENT Exam: Mucous Membranes Moist - Neck Exam Neck exam: Positive for: Normal Inspection - Respiratory Exam Respiratory Exam: NORMAL BREATHING PATTERN - Cardiovascular Exam Cardiovascular Exam: REGULAR RHYTHM - Extremities Exam Additional comments: B/L Legs dresssing c/d/i Results - Vital Signs Recent Vital Signs: Last Vital Signs Temp 98.2 F 12/08/18 20:05 Pulse 69 12/08/18 20:05 Resp 18 12/08/18 20:05 BP 136/89 12/08/18 20:05 Pulse Ox 98 12/08/18 20:05 - Labs Result Diagrams: 12/08/18 19:38 12/08/18 19:38 Labs: Laboratory Results - last 24 hr 12/08/18 12/08/18 19:38 19:38 WBC 8.0 RBC 5.07 Hgb 14.6 Hct 43.4 MCV 85.6 MCH 28.8 MCHC 33.6 RDW 13.3 Plt Count 334 MPV 7.6 Neut % (Auto) 68.1 Lymph % (Auto) 22.6 [place] % (Auto) 6.6 Eos % (Auto) 1.8 Baso % (Auto) 0.9 Neut # (Auto) 5.5 Lymph # (Auto) 1.8 [place] # (Auto) 0.5 Eos # (Auto) 0.1 Baso # (Auto) 0.1 Sodium 139 Potassium 4.5 Chloride 98 Carbon Dioxide 25 Anion Gap 21 H BUN 11 Creatinine 0.6 L Est GFR ( Amer) > 60 Est GFR (Non-Af Amer) > 60 Random Glucose 91 Calcium 9.5 Assessment & Plan - Assessment and Plan (Free Text) Assessment: 43 yo female seen and evaluated for chronic nonhealing b/l leg wounds; noninfected. Plan: Patient seen and evaluated chart, labs and vitals reviewed; afebrile absent leukocytosis History and plan discussed in detail with the attending, Dr Maurer Patient advised to return to the ED on for a further workup with possible admission and surgery Patient showed verbal understanding thank you for the consult
== END 2018-12-08 20:05 | disposition home or self-care (01) ==
LOC: H.ER 18:16
DX: S81.802A Unspecified open wound, left lower leg, initial encounter (principal); S81.801A Unspecified open wound, right lower leg, initial encounter; I87.2 Venous insufficiency (chronic) (peripheral); Z87.891 Personal history of nicotine dependence

== ENCOUNTER 2018-12-10 10:25 | Inpatient (IN) | payer MEDICAID ==
--- NOTE | 2018-12-10 11:32 | CP.PCM.CON ---
History of Present Illness - History of Present Illness History of Present Illness: Podiatry Consult Note: Dr. Maurer 43 year old female patient, with PMHx of Factor V Leiden, seen and evaluated for L leg chronic ulceration. Patient states that she was sent to ED by Dr. Maurer for debridement and skin graft application. Patient states that her weekly dressing were applied by Dr. Maurer and instructed to remain intact until procedure. Patient states that she experiences pain to ulceration site and takes OTC pain medication at home. Denies nausea/vomiting/fever/shortness of breath. PMHx: Factor V Leiden PSHx: serial wound debridements, section SHx: Former tobacco use ALL: NKDA Review of Systems - Constitutional Constitutional: As Per HPI Past Patient History - Infectious Disease Hx of Infectious Diseases: None - Past Medical History & Family History Past Medical History?: Yes - Past Social History Smoking Status: Former Smoker - CARDIAC Hx Cardiac Disorders: Yes Hx Circulatory Problems: Yes (Bilat foot venous insufficiency) - PULMONARY Hx Respiratory Disorders: No - NEUROLOGICAL Hx Neurological Disorder: No - HEENT Hx HEENT Problems: No - RENAL Hx Chronic Kidney Disease: No - ENDOCRINE/METABOLIC Hx Endocrine Disorders: No - HEMATOLOGICAL/ONCOLOGICAL Hx Blood Disorders: No - INTEGUMENTARY Hx Dermatological Problems: Yes Other/Comment: FOOT ULCERs chronic x 5 years - MUSCULOSKELETAL/RHEUMATOLOGICAL Hx Musculoskeletal Disorders: No - GASTROINTESTINAL Hx Gastrointestinal Disorders: No - GENITOURINARY/GYNECOLOGICAL Hx Genitourinary Disorders: No - PSYCHIATRIC Hx Psychophysiologic Disorder: No Hx Substance Use: No - SURGICAL HISTORY Hx Surgeries: Yes Hx Section: Yes (X3) Hx Musculoskeletal Surgery: Yes (BILATERAL FOOT) Other/Comment: BILATERAL DEBRIDMENT AND GRAFT APPLICATION 10/08/16 - ANESTHESIA Hx Anesthesia: Yes Hx Anesthesia Reactions: No Hx Malignant Hyperthermia: No Meds Allergies/Adverse Reactions: Allergies Allergy/AdvReac Type Severity Reaction Status Date / Time No Known Allergies Allergy Verified 12/08/18 18:44 Physical Exam - Constitutional Appears: Non-toxic, No Acute Distress - Head Exam Head Exam: ATRAUMATIC, NORMOCEPHALIC - Extremities Exam Additional comments: Dressing left c/d/i NVS intact CFT < 3 seconds - Neurological Exam Neurological exam: Alert, Oriented x3 - Psychiatric Exam Psychiatric exam: Normal Affect, Normal Mood Results - Vital Signs Recent Vital Signs: Last Vital Signs Temp 98.4 F 12/10/18 10:28 Pulse 73 12/10/18 10:28 Resp 18 12/10/18 10:28 BP 142/87 12/10/18 10:28 Pulse Ox 99 12/10/18 10:28 Assessment & Plan - Assessment and Plan (Free Text) Assessment: 43 year old female patient, with PMHx of Factor V Leiden, seen and evaluated for L leg chronic ulceration; stable, plan for debridement and skin graft application Plan: Patient seen and evaluated Discussed with Dr. Maurer Afebrile, absent leukocytosis NPO after midnight WBAT to L lower extremity Patient booked for surgery tomorrow at 1:30pm with Dr. Maurer for wound graft harvest Please medically optimize patient and provide clearance Will continue to follow Thank you for the consult - Date & Time Date: 12/10/18 Time: 12:10
[2018-12-10 12:25] LABS: BASO # 0.1 K/uL (0.0-0.2); EOS # 0.1 K/uL (0.0-0.7); EOS % 1.7 % (0.0-4.0); HEMOGLOBIN 15.4 g/dL (12.0-16.0); LYMPH # 2.3 K/uL (1.0-4.3); MEAN CORPUSCULAR HEMOGLOBIN 29.6 pg (27.0-31.0); MEAN CORPUSCULAR HGB CONC 34.9 g/dL (33.0-37.0); MEAN PLATELET VOLUME 7.7 fl (7.2-11.7); MONO # 0.6 K/uL (0.0-0.8); MONO % 7.2 % (0.0-10.0); NEUT # 5.6 K/uL (1.8-7.0); NEUT % 64.1 % (50.0-75.0); NRBC % 0.2 % (0.0-0.0); RBC 5.21 Mil/uL (3.80-5.20); RED CELL DISTRIBUTION WIDTH 13.3 % (11.5-14.5); WHITE BLOOD COUNT 8.7 K/uL (4.8-10.8)
[2018-12-10 12:33] LABS: INR 0.9; PROTHROMBIN TIME 10.3 Seconds (9.8-13.1)
[2018-12-10 12:35] LABS: PARTIAL THROMBOPLASTIN TIME 25.8 Seconds (25.6-37.1)
--- NOTE | 2018-12-10 13:02 | ED PDOC ---
Lower Extremity Pain/Injury Time Seen by Provider: 12/10/18 10:56 Chief Complaint (Nursing): Lower Extremity Problem/Injury Chief Complaint (Provider): Lower Extremity Problem/Injury History Per: Patient History/Exam Limitations: no limitations Onset/Duration Of Symptoms: Days Current Symptoms Are (Timing): Still Present Additional Complaint(s): 43 y/o female sent by administrative support coordinator, Dr. Randle for hospitalization for a non- healing lower extremity ulcer. Podiatry resident met patient in the ER. Discussed with Dr. Randle who will be admitting the patient for debridement and grafting. PMD: Cheo Randle Past Medical History Reviewed: Historical Data, Nursing Documentation, Vital Signs Vital Signs: Last Vital Signs Temp 98.4 F 12/10/18 10:28 Pulse 73 12/10/18 10:28 Resp 18 12/10/18 10:28 BP 142/87 12/10/18 10:28 Pulse Ox 99 12/10/18 10:28 - Medical History PMH: No Chronic Diseases Denies: Chronic Kidney Disease - Surgical History Surgical History: No Surg Hx - Family History Family History: States: Unknown Family Hx - Immunization History Hx Tetanus Toxoid Vaccination: No Hx Influenza Vaccination: No Hx Pneumococcal Vaccination: No - Home Medications Home Medications: Ambulatory Orders Medication Instructions Recorded No Known Home Med 12/10/18 - Allergies Allergies/Adverse Reactions: Allergies Allergy/AdvReac Type Severity Reaction Status Date / Time No Known Allergies Allergy Verified 12/08/18 18:44 Review of Systems ROS Statement: Except As Marked, All Systems Reviewed And Found Negative Musculoskeletal: Positive for: Leg Pain Physical Exam - Reviewed Nursing Documentation Reviewed: Yes Vital Signs Reviewed: Yes - Physical Exam Appears: Positive for: No Acute Distress Respiratory: Negative for: Respiratory Distress Extremity: Positive for: Other (Lower extremities noted to with bandages on them.) Neurological/Psych: Positive for: Awake, Alert, Other (Patient is neurologically at baseline.) - Laboratory Results Result Diagrams: 12/10/18 11:55 12/10/18 12:58 Lab Results: PT 10.3 Seconds (9.8-13.1) 12/10/18 11:55 INR 0.9 12/10/18 11:55 APTT 25.8 Seconds (25.6-37.1) 12/10/18 11:55 - ECG O2 Sat by Pulse Oximetry: 99 (RA) Pulse Ox Interpretation: Normal Medical Decision Making Medical Decision Making: Time: 1112 A/P: Pre-OP workup initialized -- Patient admitted to electronics engineering manager medicine, Dr. Rios. -- ED Urine Dipstick -- ED Urine -- CBC with Differentials -- PTT -- Prothrombin Time Time: 1259 Plan: -- EKG Time: 1300 -- CXR Two Views -- Podiatry to place further orders Scribe Attestation: Documented by Aleksandar Valenzuela, acting as a scribe Chris Woodard, Provider Scribe Attestation: All medical record entries made by the Scribe were at my direction and personally dictated by me. I have reviewed the chart and agree that the record accurately reflects my personal performance of the history, physical exam, medical decision making, and the department course for this patient. I have also personally directed, reviewed, and agree with the discharge instructions and disposition. Disposition - Clinical Impression Clinical Impression: Lower limb ulcer - Patient ED Disposition Is Patient to be Admitted: Yes Counseled Patient/Family Regarding: Studies Performed, Diagnosis, Need For Followup, Rx Given - Disposition Disposition Time: 12:45 Condition: STABLE
--- NOTE | 2018-12-10 13:20 | RAD ---
Date of service: 12/10/2018 HISTORY: med clr COMPARISON: 03/26/2017 TECHNIQUE: Chest PA and lateral FINDINGS: LUNGS: No active pulmonary disease. PLEURA: No significant pleural effusion identified. No pneumothorax apparent. CARDIOVASCULAR: No aortic atherosclerotic calcification present. Heart size top normal. No significant appearing pulmonary venous congestion. OSSEOUS STRUCTURES: No significant abnormalities. VISUALIZED UPPER ABDOMEN: Normal. OTHER FINDINGS: None. IMPRESSION: No interval pathology noted.
[2018-12-10 13:29] LABS: ALB/GLOB RATIO 1.2 (1.0-2.1); BLOOD UREA NITROGEN 11 mg/dl (7-17); CALCIUM 8.9 mg/dL (8.4-10.2); GFR NON-AFRICAN AMERICAN > 60
[2018-12-10 13:33] LABS: ALT/SGPT 39 U/L (9-52); AST/SGOT 41 U/L (14-36)
--- NOTE | 2018-12-10 15:39 | CP.PCM.HP ---
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 Patient states that she was sent to ED by Dr. Maurer for debridement and skin graft application. Patient states that her weekly dressing were applied by Dr. Lester and instructed to remain intact until procedure. Patient states that she experiences pain and foul smelling to ulceration site. Patient takes OTC pain medication at home. Patient was also treated with Antibiotics. Denies nausea/vomiting/fever/shortness of breath. Patient denies TEE, chest pain, and >4 METs equivalent for low risk surgery. Medically Cleared for Left Leg and foot Wound Debridment. Present on Admission - Present on Admission Any Indicators Present on Admission: No Review of Systems - Review of Systems All systems: reviewed and no additional remarkable complaints except Review of Systems: as per HPI Past Patient History - Infectious Disease Hx of Infectious Diseases: None - Past Medical History & Family History Past Medical History?: Yes Past Family History: Reviewed and not pertinent - Past Social History Smoking Status: Former Smoker Alcohol: Social Drugs: Denies - CARDIAC Hx Cardiac Disorders: Yes Hx Circulatory Problems: Yes (Bilat foot venous insufficiency) - PULMONARY Hx Respiratory Disorders: No - NEUROLOGICAL Hx Neurological Disorder: No - HEENT Hx HEENT Problems: No - RENAL Hx Chronic Kidney Disease: No - ENDOCRINE/METABOLIC Hx Endocrine Disorders: No - HEMATOLOGICAL/ONCOLOGICAL Hx Blood Disorders: No - INTEGUMENTARY Hx Dermatological Problems: Yes Other/Comment: FOOT ULCERs chronic x 5 years - MUSCULOSKELETAL/RHEUMATOLOGICAL Hx Musculoskeletal Disorders: No - GASTROINTESTINAL Hx Gastrointestinal Disorders: No - GENITOURINARY/GYNECOLOGICAL Hx Genitourinary Disorders: No - PSYCHIATRIC Hx Psychophysiologic Disorder: No Hx Substance Use: No - SURGICAL HISTORY Hx Surgeries: Yes Hx Section: Yes (X3) Hx Musculoskeletal Surgery: Yes (BILATERAL FOOT) Other/Comment: BILATERAL DEBRIDMENT AND GRAFT APPLICATION 10/08/16 - ANESTHESIA Hx Anesthesia: Yes Hx Anesthesia Reactions: No Hx Malignant Hyperthermia: No Meds Allergies/Adverse Reactions: Allergies Allergy/AdvReac Type Severity Reaction Status Date / Time No Known Allergies Allergy Verified 12/08/18 18:44 Physical Exam - Constitutional Appears: Well, No Acute Distress - Head Exam Head Exam: ATRAUMATIC, NORMAL INSPECTION, NORMOCEPHALIC - Eye Exam Eye Exam: EOMI, Normal appearance, PERRL Pupil Exam: NORMAL ACCOMODATION, PERRL - ENT Exam ENT Exam: Mucous Membranes Moist, Normal Exam - Neck Exam Neck exam: Positive for: Normal Inspection - Respiratory Exam Respiratory Exam: Clear to Auscultation Bilateral, NORMAL BREATHING PATTERN - Cardiovascular Exam Cardiovascular Exam: REGULAR RHYTHM, +S1, +S2 - GI/Abdominal Exam GI & Abdominal Exam: Normal Bowel Sounds, Soft. absent: Tenderness - Extremities Exam Additional comments: Left Leg and foot infected wound with foul smelling discharge. - Back Exam Back exam: NORMAL INSPECTION - Neurological Exam Neurological exam: Alert, CN II-XII Intact, Normal Gait, Oriented x3, Reflexes Normal - Psychiatric Exam Psychiatric exam: Normal Affect, Normal Mood - Skin Skin Exam: Dry, Intact, Normal Color, Warm Results - Vital Signs Recent Vital Signs: Last Vital Signs Temp 98.4 F 12/10/18 10:28 Pulse 73 12/10/18 10:28 Resp 18 12/10/18 10:28 BP 142/87 12/10/18 10:28 Pulse Ox 99 12/10/18 14:55 - Labs Result Diagrams: 12/10/18 11:55 12/10/18 12:58 Labs: Laboratory Results - last 24 hr 12/10/18 12/10/18 12/10/18 11:55 11:55 12:58 WBC 8.7 RBC 5.21 H Hgb 15.4 Hct 44.3 MCV 85.0 MCH 29.6 MCHC 34.9 RDW 13.3 Plt Count 342 MPV 7.7 Neut % (Auto) 64.1 Lymph % (Auto) 26.0 [place] % (Auto) 7.2 Eos % (Auto) 1.7 Baso % (Auto) 1.0 Neut # (Auto) 5.6 Lymph # (Auto) 2.3 [place] # (Auto) 0.6 Eos # (Auto) 0.1 Baso # (Auto) 0.1 PT 10.3 INR 0.9 APTT 25.8 Sodium 138 Potassium 4.8 Chloride 102 Carbon Dioxide 30 Anion Gap 11 BUN 11 Creatinine 0.6 L Est GFR ( Amer) > 60 Est GFR (Non-Af Amer) > 60 Random Glucose 97 Calcium 8.9 Total Bilirubin 0.9 AST 41 H ALT 39 Alkaline Phosphatase 65 Total Protein 7.5 Albumin 4.0 Globulin 3.5 Albumin/Globulin Ratio 1.2 - Imaging and Cardiology Chest x-ray Status: Report reviewed by me Additional comment: Date of service: 12/10/2018 HISTORY: med clr COMPARISON: 03/26/2017 TECHNIQUE: Chest PA and lateral FINDINGS: LUNGS: No active pulmonary disease. PLEURA: No significant pleural effusion identified. No pneumothorax apparent. CARDIOVASCULAR: No aortic atherosclerotic calcification present. Heart size top normal. No significant appearing pulmonary venous congestion. OSSEOUS STRUCTURES: No significant abnormalities. VISUALIZED UPPER ABDOMEN: Normal. OTHER FINDINGS: None. IMPRESSION: No interval pathology noted. Assessment & Plan (1) Skin ulcers of foot, bilateral Status: Acute Priority: High (2) Chronic venous stasis dermatitis Status: Chronic Priority: Low - Assessment and Plan (Free Text) Plan: Wound Care daily IV Vancomycin and Zosyn Poditrist and ID Consult Scheduled for OR for tomorrow. NPO Past Midnight Medically cleared for Wound Debridement with Acceptable Risk for the Procedure.
[2018-12-10] MEDS ORDERED: Oxycodone/Acetaminophen 5/325 mg Tab PO PRN (18:18)
[2018-12-10 20:27] VITALS: BMI 37.3
[2018-12-10] MEDS: Piperacillin/Tazobact 3.375 GM in Sodium Chloride 0.9% 100 ML IVPB SCH (21:06)
[2018-12-10] MEDS: Dextrose 5%/0.9% NS 1,000 ML IV SCH (22:45)
[2018-12-11] MEDS: Piperacillin/Tazobact 3.375 GM in Sodium Chloride 0.9% 100 ML IVPB SCH ×5 (03:07→23:00)
[2018-12-11 06:35] LABS: BASO # 0.1 K/uL (0.0-0.2); BASO % 1.3 % (0.0-2.0); EOS # 0.1 K/uL (0.0-0.7); EOS % 1.6 % (0.0-4.0); HEMOGLOBIN 14.2 g/dL (12.0-16.0); LYMPH # 2.5 K/uL (1.0-4.3); LYMPH % 28.7 % (20.0-40.0); MEAN CELL VOLUME 85.4 fl (81.0-99.0); MEAN CORPUSCULAR HEMOGLOBIN 28.6 pg (27.0-31.0); MEAN CORPUSCULAR HGB CONC 33.6 g/dL (33.0-37.0); MEAN PLATELET VOLUME 7.4 fl (7.2-11.7); MONO # 0.6 K/uL (0.0-0.8); MONO % 6.8 % (0.0-10.0); NEUT # 5.4 K/uL (1.8-7.0); NEUT % 61.6 % (50.0-75.0); NRBC % 0.1 % (0.0-0.0); RBC 4.95 Mil/uL (3.80-5.20); RED CELL DISTRIBUTION WIDTH 13.2 % (11.5-14.5); WHITE BLOOD COUNT 8.8 K/uL (4.8-10.8)
[2018-12-11 08:05] LABS: ALB/GLOB RATIO 1.2 (1.0-2.1); ALBUMIN 3.8 g/dL (3.5-5.0); ALT/SGPT 36 U/L (9-52); AST/SGOT 28 U/L (14-36); BLOOD UREA NITROGEN 10 mg/dl (7-17); CALCIUM 8.6 mg/dL (8.4-10.2); GFR NON-AFRICAN AMERICAN > 60
[2018-12-11] MEDS: Dextrose 5%/0.9% NS 1,000 ML IV SCH ×2 (10:52→20:49)
[2018-12-11] MEDS: Oxycodone/Acetaminophen 5/325 mg Tab PO PRN ×2 (10:55→18:46)
--- NOTE | 2018-12-11 12:16 | CP.PCM.PN ---
Subjective - Date & Time of Evaluation Date of Evaluation: 12/11/18 Time of Evaluation: 12:14 - Subjective Subjective: Podiatry Consult Note: Dr. Maurer 43 year old female patient, seen and evaluated for L leg chronic ulceration. Patient aware of plan for surgical intervention today for wound graft harvest. She states that she has remained NPO past midnight. Patient has no questions or concerns regarding procedure. Denies nausea/vomiting/fever/shortness of breath. Objective - Vital Signs/Intake and Output Vital Signs (last 24 hours): Temp Pulse Resp BP Pulse Ox 98 F 65 20 119/69 96 12/11/18 08:31 12/11/18 08:31 12/11/18 08:31 12/11/18 08:31 12/11/18 08:31 - Medications Medications: Current Medications Acetaminophen (Tylenol 325mg Tab) 650 mg PO Q6 PRN PRN Reason: Pain, Mild (1-3) Heparin Sodium (Porcine) (Heparin) 5,000 units SC Q8 PAOLA; Protocol Last Admin: 12/11/18 02:00 Dose: 5,000 units Vancomycin HCl 1 gm/ Sodium (Chloride) 250 mls @ 166.667 mls/hr IVPB Q12 PAOLA; Protocol Last Admin: 12/11/18 09:32 Dose: 166.667 mls/hr Piperacillin Sod/Tazobactam (Sod 3.375 gm/ Sodium Chloride) 100 mls @ 100 mls/hr IVPB Q6 PAOLA; Protocol Last Admin: 12/11/18 10:57 Dose: 100 mls/hr Dextrose/Sodium Chloride (Dextrose 5%/0.9% Ns 1000 Ml) 1,000 mls @ 100 mls/hr IV .Q10H PAOLA Stop: 12/11/18 22:39 Last Admin: 12/11/18 10:52 Dose: Not Given Morphine Sulfate (Morphine) 2 mg IVP Q4 PRN PRN Reason: Pain, severe (8-10) Last Admin: 12/11/18 03:05 Dose: 2 mg Oxycodone/Acetaminophen (Percocet 5/325 Mg Tab) 1 tab PO Q6 PRN PRN Reason: Pain, moderate (4-7) Stop: 12/13/18 18:19 Last Admin: 12/11/18 10:55 Dose: 1 tab - Labs Labs: 12/11/18 06:15 12/11/18 06:15 PT 10.3 Seconds (9.8-13.1) 12/10/18 11:55 INR 0.9 12/10/18 11:55 APTT 25.8 Seconds (25.6-37.1) 12/10/18 11:55 - Constitutional Appears: Non-toxic, No Acute Distress - Head Exam Head Exam: ATRAUMATIC, NORMOCEPHALIC - Extremities Exam Additional comments: Dressing left c/d/i NVS intact CFT < 3 seconds - Neurological Exam Neurological Exam: Alert, Awake - Psychiatric Exam Psychiatric exam: Normal Affect, Normal Mood Assessment and Plan - Assessment and Plan (Free Text) Assessment: 43 year old female patient, with PMHx of Factor V Leiden, seen and evaluated for L leg chronic ulceration; stable, plan for debridement and skin graft application Plan: Patient seen and evaluated Discussed with Dr. Maurer Afebrile, absent leukocytosis NPO after midnight WBAT to L lower extremity Plan for surgery at 1:30pm with Dr. Maurer for wound graft harvest
[2018-12-11] MEDS ORDERED: Lidocaine 1% Inj (20ml) ONE (13:24)
[2018-12-11] MEDS ORDERED: Bupivacaine 0.5% Inj(30mL) ONE (13:24)
[2018-12-11] MEDS ORDERED: Propofol 10 mg/ml Inj (20 ML) ONE (13:26)
[2018-12-11] MEDS ORDERED: Midazolam 2 MG/2 ML VIAL ONE (13:41)
[2018-12-11] MEDS ORDERED: Bupivacaine 0.5% 50 ML IJ ONE (14:50)
[2018-12-11] MEDS ORDERED: Lidocaine 1% Inj (20ml) IJ ONE (14:50)
[2018-12-11] MEDS: HYDROmorphone 0.5 mg/0.5 ml ISec IVP PRN ×2 (15:00→15:15)
[2018-12-11] MEDS ORDERED: HYDROmorphone 0.5 mg/0.5 ml ISec ONE (15:03)
--- NOTE | 2018-12-11 15:03 | PCM.SURG1 ---
Surgeon's Initial Post Op Note - Surgeon's Notes Surgeon: Dr. Maurer Roll Wrapper: Lynn Gallegos PGY1, Nerissa Felix PGY1 Type of Anesthesia: IV Sedation, Local Anesthesia Administered By: Dr. Fields Pre-Operative Diagnosis: B/l non healing ulcerations Operative Findings: See dictation Post-Operative Diagnosis: Same Operation Performed: B/L wound debridement with misonix with skin graft harvest Specimen/Specimens Removed: None Estimated Blood Loss: EBL {In ML}: 40 Blood Products Given: N/A Drains Used: No Drains Post-Op Condition: Good Date of Surgery/Procedure: 12/11/18 Time of Surgery/Procedure: 15:03
[2018-12-11] MEDS ORDERED: Oxycodone/Acetaminophen 5/325 mg Tab PO PRN (15:04)
--- NOTE | 2018-12-11 15:23 | PCM.ANESB3 ---
Femoral Nerve Block - Femoral Nerve Block Date of Procedure: 12/11/18 Anesthesiologist: joi Pre-Procedure Diagnosis: Left medial leg pain Post-Procedure Diagnosis: same Procedure Performed: Femoral Nerve Block Left - Procedure Femoral Nerve Block: The procedure was explained to the patient that it is for the post-operative pain management. Consent was obtained after a thorough discussion with the patient regarding the benefits and possible complications of local anesthetic block of the femoral nerve at the inguinal crease area. The patient was brought to the operating room and standard monitors were applied. Time-out was held with the circulating nurse to confirm the correct surgery and the appropriate block. After applying oxygen by nasal cannula and administering IV Sedation, patient was placed in supine position with fully extended lower extremities and the left groin exposed. The femoral artery was then carefully palpated. The ultrasound transducer was then applied to this area in the transverse plane and the femoral nerve was visualized lateral to the femoral artery and underneath the fascia iliaca. After thorough identification, the inguinal crease area was prepped with Betadine solution three times and 1 % Lidocaine was injected subcutaneously for topical anesthesia. At this point, a #22 gauge Stimuplex 2-inch needle was inserted immediately lateral to the femoral artery pulse at the inguinal crease and advanced perpendicularly. The needle was inserted to the ultrasound transducer in-plane towards the femoral nerve in a [id number] direction. Needle advancement was performed carefully under direct ultrasound visualization. Nerve stimulator was used and twitch of the quadriceps muscle was obtained at current of _2.0____MA. After negative aspiration, ___1__cc of _0.5____% __ropivicaine was injected and this was followed with _19 cc of __0.5 % ___ropivicaine . Under ultrasound guidance the local anesthetics were observed spreading below fascia iliaca and around the femoral nerve. The needle was removed intact and sterile dressing was applied. The patient had stable vital signs, was conscious and in no apparent distress. The patient tolerated the femoral nerve block well with stable vital signs and was prepared for subsequent surgery.
--- NOTE | 2018-12-11 16:17 | CP.PCM.PN ---
Subjective - Date & Time of Evaluation Date of Evaluation: 12/11/18 Objective - Vital Signs/Intake and Output Vital Signs (last 24 hours): Temp Pulse Resp BP Pulse Ox 97.3 F L 71 18 122/78 100 12/11/18 15:00 12/11/18 16:00 12/11/18 16:00 12/11/18 16:00 12/11/18 16:00 Intake and Output: 12/11/18 12/11/18 06:59 18:59 Intake Total 700 Balance 700 - Medications Medications: Current Medications Acetaminophen (Tylenol 325mg Tab) 650 mg PO Q6 PRN PRN Reason: Pain, Mild (1-3) Acetaminophen (Tylenol 325mg Tab) 650 mg PO Q4 PRN PRN Reason: Pain, Mild (1-3) Heparin Sodium (Porcine) (Heparin) 5,000 units SC Q8 PAOLA; Protocol Last Admin: 12/11/18 02:00 Dose: 5,000 units Hydromorphone HCl (Dilaudid) 0.5 mg IVP Q5M PRN PRN Reason: Pain, severe (8-10) Stop: 12/11/18 17:02 Last Admin: 12/11/18 15:15 Dose: 0.5 mg Vancomycin HCl 1 gm/ Sodium (Chloride) 250 mls @ 166.667 mls/hr IVPB Q12 PAOLA; Protocol Last Admin: 12/11/18 09:32 Dose: 166.667 mls/hr Piperacillin Sod/Tazobactam (Sod 3.375 gm/ Sodium Chloride) 100 mls @ 100 mls/hr IVPB Q6 PAOLA; Protocol Last Admin: 12/11/18 10:57 Dose: 100 mls/hr Dextrose/Sodium Chloride (Dextrose 5%/0.9% Ns 1000 Ml) 1,000 mls @ 100 mls/hr IV .Q10H PAOLA Stop: 12/11/18 22:39 Last Admin: 12/11/18 10:52 Dose: Not Given Morphine Sulfate (Morphine) 2 mg IVP Q4 PRN PRN Reason: Pain, severe (8-10) Last Admin: 12/11/18 03:05 Dose: 2 mg Ondansetron HCl (Zofran Inj) 4 mg IVP ONCE PRN PRN Reason: Nausea/Vomiting Stop: 12/11/18 17:02 Oxycodone/Acetaminophen (Percocet 5/325 Mg Tab) 1 tab PO Q6 PRN PRN Reason: Pain, moderate (4-7) Stop: 12/13/18 18:19 Last Admin: 12/11/18 10:55 Dose: 1 tab Oxycodone/Acetaminophen (Percocet 5/325 Mg Tab) 1 tab PO Q4 PRN PRN Reason: Pain, moderate (4-7) Stop: 12/14/18 15:05 - Labs Labs: 12/11/18 06:15 12/11/18 06:15 PT 10.3 Seconds (9.8-13.1) 12/10/18 11:55 INR 0.9 12/10/18 11:55 APTT 25.8 Seconds (25.6-37.1) 12/10/18 11:55 Assessment and Plan (1) Skin ulcers of foot, bilateral Status: Acute (2) Chronic venous stasis dermatitis Status: Chronic
[2018-12-12] MEDS ORDERED: Oxycodone/Acetaminophen 5/325 mg Tab PO STA (01:23)
[2018-12-12] MEDS: Piperacillin/Tazobact 3.375 GM in Sodium Chloride 0.9% 100 ML IVPB SCH ×4 (04:33→23:35)
[2018-12-12] MEDS: Oxycodone/Acetaminophen 5/325 mg Tab PO PRN ×3 (08:58→21:39)
--- NOTE | 2018-12-12 13:59 | CP.PCM.PN ---
Subjective - Date & Time of Evaluation Date of Evaluation: 12/12/18 Time of Evaluation: 13:56 - Subjective Subjective: Podiatry Progress Note: Dr. Maurer 43 year old female patient, seen and evaluated POD#1 b/l wound debridement with skin graft harvest. Patient doing well today, however reports pain to b/l ulceration site. Patient aware for second procedure Friday for application of skin graft. Denies nausea/vomiting/fever/shortness of breath. Objective - Vital Signs/Intake and Output Vital Signs (last 24 hours): Temp Pulse Resp BP Pulse Ox 97.7 F 63 18 109/68 96 12/12/18 08:47 12/12/18 08:47 12/12/18 08:47 12/12/18 08:47 12/12/18 08:47 - Medications Medications: Current Medications Acetaminophen (Tylenol 325mg Tab) 650 mg PO Q6 PRN PRN Reason: Pain, Mild (1-3) Acetaminophen (Tylenol 325mg Tab) 650 mg PO Q4 PRN PRN Reason: Pain, Mild (1-3) Last Admin: 12/11/18 20:50 Dose: 650 mg Heparin Sodium (Porcine) (Heparin) 5,000 units SC Q8 PAOLA; Protocol Last Admin: 12/12/18 09:15 Dose: 5,000 units Vancomycin HCl 1 gm/ Sodium (Chloride) 250 mls @ 166.667 mls/hr IVPB Q12 PAOLA; Protocol Last Admin: 12/12/18 08:59 Dose: 166.667 mls/hr Piperacillin Sod/Tazobactam (Sod 3.375 gm/ Sodium Chloride) 100 mls @ 100 mls/hr IVPB Q6 PAOLA; Protocol Last Admin: 12/12/18 11:16 Dose: 100 mls/hr Oxycodone/Acetaminophen (Percocet 5/325 Mg Tab) 1 tab PO Q6 PRN PRN Reason: Pain, moderate (4-7) Stop: 12/13/18 18:19 Last Admin: 12/11/18 18:46 Dose: 1 tab Oxycodone/Acetaminophen (Percocet 5/325 Mg Tab) 2 tab PO Q6 PRN PRN Reason: Pain, severe (8-10) Stop: 12/15/18 08:28 Last Admin: 12/12/18 08:58 Dose: 2 tab - Labs Labs: 12/11/18 06:15 12/11/18 06:15 PT 10.3 Seconds (9.8-13.1) 12/10/18 11:55 INR 0.9 12/10/18 11:55 APTT 25.8 Seconds (25.6-37.1) 12/10/18 11:55 - Constitutional Appears: Non-toxic, No Acute Distress - Head Exam Head Exam: ATRAUMATIC, NORMOCEPHALIC - Extremities Exam Additional comments: Dressing left c/d/i NVS intact CFT < 3 seconds - Neurological Exam Neurological Exam: Alert, Awake, Oriented x3 Assessment and Plan - Assessment and Plan (Free Text) Assessment: 43 year old female patient, with PMHx of Factor V Leiden, seen and evaluated POD#1 b/l ulceration debridement and skin graft harvest Plan: Patient seen and evaluated Discussed with Dr. Maurer Afebrile, absent leukocytosis WBAT to b/l lower extremities Dressing c/d/i C/w pain management Plan for surgery at on Friday with Dr. Maurer for wound graft application
[2018-12-13] MEDS: Oxycodone/Acetaminophen 5/325 mg Tab PO PRN ×4 (02:10→20:16)
[2018-12-13] MEDS: Piperacillin/Tazobact 3.375 GM in Sodium Chloride 0.9% 100 ML IVPB SCH ×4 (04:01→23:00)
--- NOTE | 2018-12-13 04:23 | CP.PCM.PN ---
Subjective - Date & Time of Evaluation Date of Evaluation: 12/12/18 Objective - Vital Signs/Intake and Output Vital Signs (last 24 hours): Temp Pulse Resp BP Pulse Ox 98.2 F 83 20 93/60 L 95 12/12/18 23:55 12/12/18 23:55 12/12/18 23:55 12/12/18 23:55 12/12/18 23:55 - Medications Medications: Current Medications Acetaminophen (Tylenol 325mg Tab) 650 mg PO Q6 PRN PRN Reason: Pain, Mild (1-3) Acetaminophen (Tylenol 325mg Tab) 650 mg PO Q4 PRN PRN Reason: Pain, Mild (1-3) Last Admin: 12/11/18 20:50 Dose: 650 mg Heparin Sodium (Porcine) (Heparin) 5,000 units SC Q8 PAOLA; Protocol Last Admin: 12/13/18 00:53 Dose: 5,000 units Vancomycin HCl 1 gm/ Sodium (Chloride) 250 mls @ 166.667 mls/hr IVPB Q12 PAOLA; Protocol Last Admin: 12/12/18 21:39 Dose: 166.667 mls/hr Piperacillin Sod/Tazobactam (Sod 3.375 gm/ Sodium Chloride) 100 mls @ 100 mls/hr IVPB Q6 PAOLA; Protocol Last Admin: 12/13/18 04:01 Dose: 100 mls/hr Oxycodone/Acetaminophen (Percocet 5/325 Mg Tab) 1 tab PO Q6 PRN PRN Reason: Pain, moderate (4-7) Stop: 12/13/18 18:19 Last Admin: 12/13/18 02:10 Dose: 1 tab Oxycodone/Acetaminophen (Percocet 5/325 Mg Tab) 2 tab PO Q6 PRN PRN Reason: Pain, severe (8-10) Stop: 12/15/18 08:28 Last Admin: 12/12/18 21:39 Dose: 2 tab - Labs Labs: 12/11/18 06:15 12/11/18 06:15 PT 10.3 Seconds (9.8-13.1) 12/10/18 11:55 INR 0.9 12/10/18 11:55 APTT 25.8 Seconds (25.6-37.1) 12/10/18 11:55 Assessment and Plan (1) Skin ulcers of foot, bilateral Status: Acute (2) Chronic venous stasis dermatitis Status: Chronic
--- NOTE | 2018-12-13 14:23 | CP.PCM.PN ---
Subjective - Date & Time of Evaluation Date of Evaluation: 12/13/18 Objective - Vital Signs/Intake and Output Vital Signs (last 24 hours): Temp Pulse Resp BP Pulse Ox 97.8 F 66 18 121/85 96 12/13/18 08:30 12/13/18 08:30 12/13/18 08:30 12/13/18 08:30 12/13/18 08:30 - Medications Medications: Current Medications Acetaminophen (Tylenol 325mg Tab) 650 mg PO Q6 PRN PRN Reason: Pain, Mild (1-3) Acetaminophen (Tylenol 325mg Tab) 650 mg PO Q4 PRN PRN Reason: Pain, Mild (1-3) Last Admin: 12/11/18 20:50 Dose: 650 mg Heparin Sodium (Porcine) (Heparin) 5,000 units SC Q8 PAOLA; Protocol Last Admin: 12/13/18 08:14 Dose: 5,000 units Vancomycin HCl 1 gm/ Sodium (Chloride) 250 mls @ 166.667 mls/hr IVPB Q12 PAOLA; Protocol Last Admin: 12/13/18 08:16 Dose: 166.667 mls/hr Piperacillin Sod/Tazobactam (Sod 3.375 gm/ Sodium Chloride) 100 mls @ 100 mls/hr IVPB Q6 PAOLA; Protocol Last Admin: 12/13/18 09:08 Dose: 100 mls/hr Oxycodone/Acetaminophen (Percocet 5/325 Mg Tab) 1 tab PO Q6 PRN PRN Reason: Pain, moderate (4-7) Stop: 12/13/18 18:19 Last Admin: 12/13/18 02:10 Dose: 1 tab Oxycodone/Acetaminophen (Percocet 5/325 Mg Tab) 2 tab PO Q6 PRN PRN Reason: Pain, severe (8-10) Stop: 12/15/18 08:28 Last Admin: 12/13/18 14:17 Dose: 2 tab - Labs Labs: 12/11/18 06:15 12/11/18 06:15 PT 10.3 Seconds (9.8-13.1) 12/10/18 11:55 INR 0.9 12/10/18 11:55 APTT 25.8 Seconds (25.6-37.1) 12/10/18 11:55 Assessment and Plan (1) Skin ulcers of foot, bilateral Status: Acute (2) Chronic venous stasis dermatitis Status: Chronic
[2018-12-14] MEDS: Oxycodone/Acetaminophen 5/325 mg Tab PO PRN ×4 (02:12→22:07)
[2018-12-14] MEDS: Piperacillin/Tazobact 3.375 GM in Sodium Chloride 0.9% 100 ML IVPB SCH ×4 (04:10→22:08)
--- NOTE | 2018-12-14 08:35 | OP ---
PROCEDURE DATE: 12/11/2018 SURGEON: Cheo Fortune DPM PORTRAIT PHOTOGRAPHER: Lynn Navarro and Nerissa Felix. ANESTHESIA: IV sedation with local. PREOPERATIVE DIAGNOSIS: Bilateral leg nonhealing ulceration. POSTOPERATIVE DIAGNOSIS: Bilateral leg nonhealing ulceration. PROCEDURES PERFORMED: 1. Left leg graft harvest polarity TE. 2. Left leg wound debridement with Misonix. 3. Right leg wound debridement with Misonix. INDICATIONS: The patient is a 43-year-old female with the above diagnosis. The patient has exhausted all conservative treatment at this time and now requires surgical intervention. The patient signed the consent after careful explanation of risks, benefits, complications, and alternatives for surgical procedure. No guarantees were given nor implied. NPO status was confirmed prior to taking the patient to the operating room. PREPARATION: The patient was brought back to the operating room and placed on the operating room table in the supine position. Time-out was performed for correct identification of the correct patient and procedure. No tourniquet was used during this procedure. DESCRIPTION OF PROCEDURE: 1. Left leg graft harvest polarity TE: First, attention was directed to the proximal lateral one-third of the leg, where a 5 x 3 full-thickness elliptical incision was made using #15 blade, being sure to include all layers of the skin from the epidermis to the subcutaneous fat. The graft was then passed off the operating field and placed in the sterile specimen cup. A 40 mL of crystalloid solution and 0.5 mL of gentamicin were added to the graft and properly passed off the sterile field and in to the appropriate specimen barrier to be shipped for processing. The incision site was copiously irrigated with sterile saline, and the subcutaneous tissue was sutured with 2-0 Vicryl and with 3-0 Prolene. 2. Next, attention was then drawn to the left leg wound, measuring 8 cm x 5 cm. Utilizing the Misonix headpiece on the setting of 7, the ulceration was debrided of all superficial fibrotic and nonviable tissue to reveal a granular bleeding wound bed. 3. Next, attention was drawn to the right leg, measuring 5 x 2. Utilizing the Misonix headpiece on the setting of 7, the ulceration was debrided of all superficial fibrotic and nonviable tissue to reveal granular bleeding wound bed. The ulceration sites were then copiously flushed with normal sterile saline. The incision sites and wound were then individually dressed with Xeroform, gauze, Kerlix, and Orestes bandage. Postoperative, at this time, 20 mL of 1:1 mixture of 0.5% Marcaine plain and 1% lidocaine plain were injected in a ring block fashion to the right leg and in a local block fashion to the right leg ulceration site. POSTOPERATIVE CONDITION: The patient tolerated the anesthesia and procedure well and was escorted to the recovery room with all vital signs stable and neurovascular status intact to the both right and left lower extremities. The patient will remain in-house, and Podiatry will continue to follow. The patient will be taken back to the operating room next week for deployment of the graft on two ulceration sites. Lynn Navarro Cheo Fortune DPM
--- NOTE | 2018-12-14 08:57 | CP.PCM.PN ---
Subjective - Date & Time of Evaluation Date of Evaluation: 12/14/18 Time of Evaluation: 08:55 - Subjective Subjective: Podiatry Progress Note: Dr. Maurer 43 year old female patient, seen and evaluated POD#3 b/l wound debridement with skin graft harvest. Patient states that her pain is decreasing and she is beginning to feel better. She is aware of wound graft application tomorrow. Patient to remain NPO after midnight. Denies nausea/vomiting/fever/shortness of breath. Objective - Vital Signs/Intake and Output Vital Signs (last 24 hours): Temp Pulse Resp BP Pulse Ox 97.6 F 67 20 114/77 95 12/14/18 08:29 12/14/18 08:29 12/14/18 08:29 12/14/18 08:29 12/14/18 08:29 - Medications Medications: Current Medications Acetaminophen (Tylenol 325mg Tab) 650 mg PO Q6 PRN PRN Reason: Pain, Mild (1-3) Acetaminophen (Tylenol 325mg Tab) 650 mg PO Q4 PRN PRN Reason: Pain, Mild (1-3) Last Admin: 12/11/18 20:50 Dose: 650 mg Heparin Sodium (Porcine) (Heparin) 5,000 units SC Q8 PAOLA; Protocol Last Admin: 12/14/18 00:09 Dose: 5,000 units Vancomycin HCl 1 gm/ Sodium (Chloride) 250 mls @ 166.667 mls/hr IVPB Q12 PAOLA; Protocol Piperacillin Sod/Tazobactam (Sod 3.375 gm/ Sodium Chloride) 100 mls @ 100 mls/hr IVPB Q6 PAOLA; Protocol Last Admin: 12/14/18 04:10 Dose: 100 mls/hr Oxycodone/Acetaminophen (Percocet 5/325 Mg Tab) 2 tab PO Q6 PRN PRN Reason: Pain, severe (8-10) Stop: 12/15/18 08:28 Last Admin: 12/14/18 02:12 Dose: 2 tab - Labs Labs: 12/11/18 06:15 12/11/18 06:15 PT 10.3 Seconds (9.8-13.1) 12/10/18 11:55 INR 0.9 12/10/18 11:55 APTT 25.8 Seconds (25.6-37.1) 12/10/18 11:55 - Constitutional Appears: Non-toxic, No Acute Distress - Extremities Exam Additional comments: Dressing left c/d/i NVS intact CFT < 3 seconds - Neurological Exam Neurological Exam: Alert, Awake, Oriented x3 - Psychiatric Exam Psychiatric exam: Normal Affect, Normal Mood Assessment and Plan - Assessment and Plan (Free Text) Assessment: 43 year old female patient, with PMHx of Factor V Leiden, seen and evaluated POD#3 b/l ulceration debridement and skin graft harvest Plan: Patient seen and evaluated Discussed with Dr. Maurer Afebrile, absent leukocytosis WBAT to b/l lower extremities Dressing c/d/i C/w pain management NPO after midnight Plan for surgery tomorrow with Dr. Maurer for wound graft application
--- NOTE | 2018-12-14 09:30 | CARD ---
APPROVED REPORT Date of service: 12/10/2018 EKG Measurement Heart [id number] <Conclusion> Normal sinus rhythm Normal ECG
[2018-12-15] MEDS: Lactated Ringer's 1,000 ML IV SCH ×2 (00:01→16:30)
[2018-12-15] MEDS: Piperacillin/Tazobact 3.375 GM in Sodium Chloride 0.9% 100 ML IVPB SCH ×4 (03:15→22:44)
[2018-12-15] MEDS: Oxycodone/Acetaminophen 5/325 mg Tab PO PRN ×2 (03:57→18:46)
[2018-12-15 06:35] LABS: MEAN CORPUSCULAR HEMOGLOBIN 28.8 pg (27.0-31.0); MEAN CORPUSCULAR HGB CONC 33.4 g/dL (33.0-37.0); RBC 4.88 Mil/uL (3.80-5.20); RED CELL DISTRIBUTION WIDTH 12.9 % (11.5-14.5); WHITE BLOOD COUNT 8.6 K/uL (4.8-10.8)
[2018-12-15 06:42] LABS: BLOOD UREA NITROGEN 13 mg/dl (7-17); GFR NON-AFRICAN AMERICAN > 60
--- NOTE | 2018-12-15 08:40 | CP.PCM.PN ---
Subjective - Date & Time of Evaluation Date of Evaluation: 12/14/18 Objective - Vital Signs/Intake and Output Vital Signs (last 24 hours): Temp Pulse Resp BP Pulse Ox 98.1 F 73 19 111/70 95 12/15/18 00:06 12/15/18 00:06 12/15/18 00:06 12/15/18 00:06 12/15/18 00:06 - Medications Medications: Current Medications Acetaminophen (Tylenol 325mg Tab) 650 mg PO Q6 PRN PRN Reason: Pain, Mild (1-3) Acetaminophen (Tylenol 325mg Tab) 650 mg PO Q4 PRN PRN Reason: Pain, Mild (1-3) Last Admin: 12/11/18 20:50 Dose: 650 mg Heparin Sodium (Porcine) (Heparin) 5,000 units SC Q8 PAOLA; Protocol Last Admin: 12/14/18 16:47 Dose: 5,000 units Vancomycin HCl 1 gm/ Sodium (Chloride) 250 mls @ 166.667 mls/hr IVPB Q12 PAOLA; Protocol Last Admin: 12/14/18 20:37 Dose: 166.667 mls/hr Piperacillin Sod/Tazobactam (Sod 3.375 gm/ Sodium Chloride) 100 mls @ 100 mls/hr IVPB Q6 PAOLA; Protocol Last Admin: 12/15/18 03:15 Dose: 100 mls/hr Lactated Ringer's (Lactated Ringer's) 1,000 mls @ 80 mls/hr IV .[id number] PAOLA Last Admin: 12/15/18 00:01 Dose: 80 mls/hr - Labs Labs: 12/15/18 05:50 12/15/18 05:50 PT 10.3 Seconds (9.8-13.1) 12/10/18 11:55 INR 0.9 12/10/18 11:55 APTT 25.8 Seconds (25.6-37.1) 12/10/18 11:55 Assessment and Plan (1) Skin ulcers of foot, bilateral Status: Acute (2) Chronic venous stasis dermatitis Status: Chronic
--- NOTE | 2018-12-15 08:42 | CP.PCM.HP ---
History of Present Illness - History of Present Illness History of Present Illness: CC: For Graft applications today. History of Present Illness: A 43yoF with H/O Chronic Wound S/p b/l feet wound Debridement with skin graft harvest 5days back has been receiving IV antibiotic and wound care for the last 5 days. Today patient is going for graft application. Denies fever, chills, chest pain, shortness of breath, palpitation, and baseline. He patient's METs equivalent. Patient is low risk and going for a low-risk surgery. Medically cleared with acceptable risk for the procedure. Present on Admission - Present on Admission Any Indicators Present on Admission: No Review of Systems - Review of Systems All systems: reviewed and no additional remarkable complaints except Past Patient History - Infectious Disease Hx of Infectious Diseases: None - Past Medical History & Family History Past Medical History?: Yes Past Family History: Reviewed and not pertinent - Past Social History Smoking Status: Former Smoker Alcohol: Social Drugs: Denies - CARDIAC Hx Cardiac Disorders: Yes Hx Circulatory Problems: Yes (Bilat foot venous insufficiency) - PULMONARY Hx Respiratory Disorders: No - NEUROLOGICAL Hx Neurological Disorder: No - HEENT Hx HEENT Problems: No - RENAL Hx Chronic Kidney Disease: No - ENDOCRINE/METABOLIC Hx Endocrine Disorders: No - HEMATOLOGICAL/ONCOLOGICAL Hx Blood Disorders: No - INTEGUMENTARY Hx Dermatological Problems: Yes Other/Comment: FOOT ULCERs chronic x 5 years - MUSCULOSKELETAL/RHEUMATOLOGICAL Hx Musculoskeletal Disorders: No - GASTROINTESTINAL Hx Gastrointestinal Disorders: No - GENITOURINARY/GYNECOLOGICAL Hx Genitourinary Disorders: No - PSYCHIATRIC Hx Psychophysiologic Disorder: No Hx Substance Use: No - SURGICAL HISTORY Hx Surgeries: Yes Hx Section: Yes (X3) Hx Musculoskeletal Surgery: Yes (BILATERAL FOOT) Other/Comment: BILATERAL DEBRIDMENT AND GRAFT APPLICATION 10/08/16 - ANESTHESIA Hx Anesthesia: Yes Hx Anesthesia Reactions: No Hx Malignant Hyperthermia: No Meds Allergies/Adverse Reactions: Allergies Allergy/AdvReac Type Severity Reaction Status Date / Time No Known Allergies Allergy Verified 12/08/18 18:44 Physical Exam - Constitutional Appears: Well, No Acute Distress - Cardiovascular Exam Cardiovascular Exam: REGULAR RHYTHM, +S1, +S2 Results - Vital Signs Recent Vital Signs: Last Vital Signs Temp 98.1 F 12/15/18 00:06 Pulse 73 12/15/18 00:06 Resp 19 12/15/18 00:06 BP 111/70 12/15/18 00:06 Pulse Ox 95 12/15/18 00:06 - Labs Result Diagrams: 12/15/18 05:50 12/15/18 05:50 Labs: Laboratory Results - last 24 hr 12/15/18 12/15/18 05:50 05:50 WBC 8.6 RBC 4.88 Hgb 14.0 Hct 42.0 MCV 86.0 MCH 28.8 MCHC 33.4 RDW 12.9 Plt Count 289 Sodium 138 Potassium 4.2 Chloride 102 Carbon Dioxide 26 Anion Gap 14 BUN 13 Creatinine 0.8 Est GFR ( Amer) > 60 Est GFR (Non-Af Amer) > 60 Random Glucose 99 Calcium 9.0 Assessment & Plan (1) Skin ulcers of foot, bilateral Assessment and Plan: Status post debridement 5 days back, infected ulcers on IV antibiotics Status: Acute Priority: High (2) Chronic venous stasis dermatitis Status: Chronic Priority: Low - Assessment and Plan (Free Text) Plan: Patient scheduled for skin graft today, and medically cleared susceptible risk.
[2018-12-15] MEDS ORDERED: Succinylcholine Chloride 20 mg/ml Syr (5 ml) IV ONE (09:34)
[2018-12-15] MEDS ORDERED: Propofol 10 mg/ml Inj (20 ML) ONE (09:34)
[2018-12-15] MEDS ORDERED: Lidocaine 4% (Laryng-O-Jet) Kit MM ONE (09:35)
--- NOTE | 2018-12-15 09:43 | CP.PCM.PN ---
Subjective - Date & Time of Evaluation Date of Evaluation: 12/15/18 Time of Evaluation: 09:43 - Subjective Subjective: Podiatry Progress Note: Dr. Maurer 43 year old female patient, seen and evaluated POD#4 b/l wound debridement with skin graft harvest. Patient resting comfortably and in NAD. She reports mild pain to b/l lower extremity ulcerations. She is aware of planned surgical procedure today and does not have any questions or concerns at this time. She notes that she has remained NPO past midnight. Denies N/F/V/SOB. Objective - Vital Signs/Intake and Output Vital Signs (last 24 hours): Temp Pulse Resp BP Pulse Ox 97.8 F 60 20 109/69 97 12/15/18 08:58 12/15/18 08:58 12/15/18 08:58 12/15/18 08:58 12/15/18 08:58 - Medications Medications: Current Medications Acetaminophen (Tylenol 325mg Tab) 650 mg PO Q6 PRN PRN Reason: Pain, Mild (1-3) Acetaminophen (Tylenol 325mg Tab) 650 mg PO Q4 PRN PRN Reason: Pain, Mild (1-3) Last Admin: 12/11/18 20:50 Dose: 650 mg Heparin Sodium (Porcine) (Heparin) 5,000 units SC Q8 PAOLA; Protocol Last Admin: 12/14/18 16:47 Dose: 5,000 units Vancomycin HCl 1 gm/ Sodium (Chloride) 250 mls @ 166.667 mls/hr IVPB Q12 PAOLA; Protocol Last Admin: 12/15/18 09:22 Dose: 166.667 mls/hr Piperacillin Sod/Tazobactam (Sod 3.375 gm/ Sodium Chloride) 100 mls @ 100 mls/hr IVPB Q6 PAOLA; Protocol Last Admin: 12/15/18 09:18 Dose: 100 mls/hr Lactated Ringer's (Lactated Ringer's) 1,000 mls @ 80 mls/hr IV .[id number] PAOLA Last Admin: 12/15/18 00:01 Dose: 80 mls/hr - Labs Labs: 12/15/18 05:50 12/15/18 05:50 PT 10.3 Seconds (9.8-13.1) 12/10/18 11:55 INR 0.9 12/10/18 11:55 APTT 25.8 Seconds (25.6-37.1) 12/10/18 11:55 - Constitutional Appears: Non-toxic, No Acute Distress - Head Exam Head Exam: ATRAUMATIC, NORMOCEPHALIC - Extremities Exam Additional comments: Dressing left c/d/i NVS intact CFT < 3 seconds - Neurological Exam Neurological Exam: Alert, Awake, Oriented x3 - Psychiatric Exam Psychiatric exam: Normal Affect, Normal Mood Assessment and Plan - Assessment and Plan (Free Text) Assessment: 43 year old female patient, with PMHx of Factor V Leiden, seen and evaluated POD#4 b/l ulceration debridement and skin graft harvest Plan: Patient seen and evaluated Discussed with Dr. Maurer Afebrile, WBC 8.6 WBAT to b/l lower extremities Dressing c/d/i C/w pain management Plan for surgery today with Dr. Maurer for wound graft application
[2018-12-15] MEDS ORDERED: Bupivacaine 0.25% Inj(30mL) IJ ONE (10:04)
[2018-12-15] MEDS ORDERED: Lidocaine 1% Inj (20ml) IJ ONE ×2 (10:04→10:43)
[2018-12-15] MEDS ORDERED: Lidocaine 1% Inj (20ml) ONE (10:41)
[2018-12-15] MEDS ORDERED: Bupivacaine 0.5% Inj(30mL) ONE (10:41)
[2018-12-15] MEDS ORDERED: Bupivacaine 0.5% 50 ML IJ ONE (10:43)
[2018-12-15] MEDS ORDERED: Midazolam 2 MG/2 ML VIAL ONE (10:47)
[2018-12-15] MEDS ORDERED: Dexamethasone 4 mg/1 ml ONE (11:08)
[2018-12-15 11:25] LABS: SQUAMOUS EPITHIAL 2 /hpf (0-5); URINE BILIRUBIN NEGATIVE (NEGATIVE); URINE BLOOD NEGATIVE (NEGATIVE); URINE CLARITY CLEAR (Clear); URINE COLOR YELLOW (YELLOW); URINE GLUCOSE (UA) NEG (NEGATIVE); URINE LEUKOCYTE ESTERASE NEG Leu/uL (Negative); URINE PROTEIN NEGATIVE (NEGATIVE); URINE UROBILINOGEN 0.2-1.0 mg/dL (0.2-1.0)
[2018-12-15] MEDS ORDERED: HYDROmorphone 0.5 mg/0.5 ml ISec IVP PRN (11:36)
--- NOTE | 2018-12-15 11:36 | PCM.SURG1 ---
Surgeon's Initial Post Op Note - Surgeon's Notes Surgeon: Dr. Randle, DPM Timber Trimmer: Dr. Torres, PGY1 Type of Anesthesia: MAC, Local Anesthesia Administered By: Dr. Lowery Pre-Operative Diagnosis: Bilateral Lower Extremity Ulcerations Operative Findings: see dictation. I: 20 cc 1% Lidocaine with 0.5% Marcaine 1:1 micture Post-Operative Diagnosis: same as above Operation Performed: deployment of full thickness skin graft to bilateral lower extremity wounds Specimen/Specimens Removed: none Estimated Blood Loss: EBL {In ML}: 2 Drains Used: No Drains Post-Op Condition: Good Date of Surgery/Procedure: 12/15/18 Time of Surgery/Procedure: 11:36
[2018-12-15] MEDS ORDERED: Lactated Ringer's 1,000 ML IV SCH (11:45)
[2018-12-15] MEDS ORDERED: Oxycodone/Acetaminophen 5/325 mg Tab PO PRN (12:51)
--- NOTE | 2018-12-15 19:06 | PCM.OP ---
Operative Report - Operative Report Date of Surgery/Procedure: 12/15/18 Time of Surgery/Procedure: 11:00 Surgeon: Dr. Jer DPM Mechanic And Welder: Dr. Jhony Torres, PGY1 Anesthesia/Sedation: Anesthesiologist: Dr. Lowery Anesthesia: MAC with Local Pre-Operative Diagnosis: Bilateral Lower Extremity Non-healing Wounds Post-Operative Diagnosis: same as above Indication for Surgery: Name of Procedure: 1) Left Ankle wound Polarity Graft application 2) Right Ankle wound Polarity Graft application Indications: The patient is a 43 year-old female with the above diagnoses. The patient has exhausted all conservative treatment at this time and now requires surgical intervention. The patient signed the consent after careful explanation of risks, benefits, complications and alternatives for surgical procedure. No guarantees were given nor implied. NPO status was confirmed prior to taking patient to the OR. Operative Findings: Preparation: The patient was brought in to the operating room and placed on the operating room table in a supine position. Timeout was performed for identification of the correct patient and procedure. The patient received 20 cc of 1:1 mixture of 1% Lidocaine and 0.5% Marcaine plain in a v-block type fashion proximal to the wound at the level of the medial malleoli. Bilateral feet were then prepped and draped in normal sterile manner and the procedure began. No tourniquet was used during the procedure. Bilateral wounds were mechanically debrided with Chlorhexadine scrub brushes. Procedure/Operation Description: Procedure 1: Attention was then drawn to the left medial ankle wound measuring 10 cm X 7 circumferentially. Polarity graft was applied with a spatula to the wound. Silicone dressing was applied. The wound was dressed with gauze, kerlix, and finally wrapped in an MARYANN. Procedure 2: Attention was then drawn to the right medial ankle wound measuring approximately 6 cm X 7. Polarity graft was applied with a spatula to the wound. Silicone dressing was applied. The wound was dressed with gauze, kerlix, and finally wrapped in an MARYANN. Estimated Blood Loss: 2 mL Complications: none Discharge & Condition: Postoperative Condition: The patient tolerated the local anesthesia and procedure well and was escorted to the recovery room with neurovascular status intact to bilateral lower extremities and vital signs stable. Patient stable for discharge and will follow up with Dr. Randle in 1 week at the [facility] [place]
[2018-12-16] MEDS: Oxycodone/Acetaminophen 5/325 mg Tab PO PRN ×3 (00:07→10:09)
[2018-12-16] MEDS: Lactated Ringer's 1,000 ML IV SCH (01:30)
[2018-12-16] MEDS: Piperacillin/Tazobact 3.375 GM in Sodium Chloride 0.9% 100 ML IVPB SCH ×2 (04:22→11:51)
--- NOTE | 2018-12-16 09:58 | CP.PCM.PN ---
Subjective - Date & Time of Evaluation Date of Evaluation: 12/16/18 Time of Evaluation: 09:56 - Subjective Subjective: Podiatry Progress Note: Dr. Maurer 43 year old female patient, seen and evaluated POD#4 b/l wound debridement with skin graft harvest, POD#1 skin graft deployment. Patient resting comfortably and in NAD. She reports mild pain to b/l lower extremity ulcerations. Patient aware of plan to f/u with Dr. Maurer on Friday's in the [facility] upon discharge. Denies N/F/V/SOB. Objective - Vital Signs/Intake and Output Vital Signs (last 24 hours): Temp Pulse Resp BP Pulse Ox 98.2 F 64 20 114/70 97 12/16/18 07:39 12/16/18 07:39 12/16/18 07:39 12/16/18 07:39 12/16/18 07:39 - Medications Medications: Current Medications Acetaminophen (Tylenol 325mg Tab) 650 mg PO Q6 PRN PRN Reason: Pain, Mild (1-3) Acetaminophen (Tylenol 325mg Tab) 650 mg PO Q4 PRN PRN Reason: Pain, Mild (1-3) Last Admin: 12/11/18 20:50 Dose: 650 mg Heparin Sodium (Porcine) (Heparin) 5,000 units SC Q8 PAOLA; Protocol Last Admin: 12/14/18 16:47 Dose: 5,000 units Vancomycin HCl 1 gm/ Sodium (Chloride) 250 mls @ 166.667 mls/hr IVPB Q12 PAOLA; Protocol Last Admin: 12/15/18 20:37 Dose: 166.667 mls/hr Piperacillin Sod/Tazobactam (Sod 3.375 gm/ Sodium Chloride) 100 mls @ 100 mls/hr IVPB Q6 PAOLA; Protocol Last Admin: 12/16/18 04:22 Dose: 100 mls/hr Lactated Ringer's (Lactated Ringer's) 1,000 mls @ 80 mls/hr IV .[id number] PAOLA Last Admin: 12/16/18 01:30 Dose: Not Given Oxycodone/Acetaminophen (Percocet 5/325 Mg Tab) 1 tab PO Q4 PRN PRN Reason: Pain, moderate (4-7) Stop: 12/18/18 12:52 Oxycodone/Acetaminophen (Percocet 5/325 Mg Tab) 2 tab PO Q4 PRN PRN Reason: Pain, severe (8-10) Stop: 12/18/18 12:52 Last Admin: 12/16/18 05:22 Dose: 2 tab - Labs Labs: 12/15/18 05:50 12/15/18 05:50 PT 10.3 Seconds (9.8-13.1) 12/10/18 11:55 INR 0.9 12/10/18 11:55 APTT 25.8 Seconds (25.6-37.1) 12/10/18 11:55 - Constitutional Appears: Well, Non-toxic, No Acute Distress - Head Exam Head Exam: ATRAUMATIC, NORMOCEPHALIC - Extremities Exam Additional comments: Dressing left c/d/i NVS intact CFT < 3 seconds B/L lower extremity ulcerations venous stasis ulceration secondary to Factor V Leiden. Bilateral ulcerations are down to the level of fat/muscle depending on the area with no bone exposure. - Neurological Exam Neurological Exam: Alert, Awake, Oriented x3 - Psychiatric Exam Psychiatric exam: Normal Affect, Normal Mood Assessment and Plan - Assessment and Plan (Free Text) Assessment: 43 year old female patient, with PMHx of Factor V Leiden, seen and evaluated POD#4 b/l ulceration debridement and skin graft harvest, POD#1 skin graft deployment. Plan: Patient seen and evaluated Discussed with Dr. Maurer WBAT to b/l lower extremities Dressing to be left clean, dry, intact to bilateral lower extremities C/w pain management Patient stable from podiatry point of view No further podiatric intervention Patient to follow up with Dr. Maurer next Gerald in the [place] [facility] [place]
[2018-12-16 14:00] VITALS: BP 117/65; PULSE 71; RESP 19; TEMP 98.1; O2SAT 98
--- NOTE | 2018-12-17 23:09 | CP.PCM.DIS ---
Provider - Provider Date of Admission: 12/10/18 12:57 Attending physician: Db Rios MD Consults: 12/10/18 16:58 Podiatry Consult Routine Comment: Consulting Provider: Cheo Randle Consulting Physician: Cheo Randle Reason for Consult: b/l leg ulcerations Time Spent in preparation of Discharge (in minutes): 30 Diagnosis - Discharge Diagnosis (1) Skin ulcers of foot, bilateral Status: Acute Priority: High (2) Chronic venous stasis dermatitis Status: Chronic Priority: Low (3) Status post skin graft Status: Acute (4) Status post debridement Status: Acute Priority: Medium Hospital Course - Lab Results Lab Results: Most Recent Lab Values WBC 8.6 K/uL (4.8-10.8) 12/15/18 05:50 RBC 4.88 Mil/uL (3.80-5.20) 12/15/18 05:50 Hgb 14.0 g/dL (12.0-16.0) 12/15/18 05:50 Hct 42.0 % (34.0-47.0) 12/15/18 05:50 MCV 86.0 fl (81.0-99.0) 12/15/18 05:50 MCH 28.8 pg (27.0-31.0) 12/15/18 05:50 MCHC 33.4 g/dL (33.0-37.0) 12/15/18 05:50 RDW 12.9 % (11.5-14.5) 12/15/18 05:50 Plt Count 289 K/uL (130-400) 12/15/18 05:50 MPV 7.4 fl (7.2-11.7) 12/11/18 06:15 Neut % (Auto) 61.6 % (50.0-75.0) 12/11/18 06:15 Lymph % (Auto) 28.7 % (20.0-40.0) 12/11/18 06:15 [place] % (Auto) 6.8 % (0.0-10.0) 12/11/18 06:15 Eos % (Auto) 1.6 % (0.0-4.0) 12/11/18 06:15 Baso % (Auto) 1.3 % (0.0-2.0) 12/11/18 06:15 Neut # (Auto) 5.4 K/uL (1.8-7.0) 12/11/18 06:15 Lymph # (Auto) 2.5 K/uL (1.0-4.3) 12/11/18 06:15 [place] # (Auto) 0.6 K/uL (0.0-0.8) 12/11/18 06:15 Eos # (Auto) 0.1 K/uL (0.0-0.7) 12/11/18 06:15 Baso # (Auto) 0.1 K/uL (0.0-0.2) 12/11/18 06:15 PT 10.3 Seconds (9.8-13.1) 12/10/18 11:55 INR 0.9 12/10/18 11:55 APTT 25.8 Seconds (25.6-37.1) 12/10/18 11:55 Sodium 138 mmol/l (132-148) 12/15/18 05:50 Potassium 4.2 MMOL/L (3.6-5.0) 12/15/18 05:50 Chloride 102 mmol/L (98-107) 12/15/18 05:50 Carbon Dioxide 26 mmol/L (22-30) 12/15/18 05:50 Anion Gap 14 (10-20) 12/15/18 05:50 BUN 13 mg/dl (7-17) 12/15/18 05:50 Creatinine 0.8 mg/dl (0.7-1.2) 12/15/18 05:50 Est GFR ( Amer) > 60 12/15/18 05:50 Est GFR (Non-Af Amer) > 60 12/15/18 05:50 POC Glucose (mg/dL) 99 mg/dL (65-110) 12/15/18 11:37 Random Glucose 99 mg/dL (65-105) 12/15/18 05:50 Calcium 9.0 mg/dL (8.4-10.2) 12/15/18 05:50 Total Bilirubin 1.3 mg/dl (0.2-1.3) 12/11/18 06:15 AST 28 U/L (14-36) 12/11/18 06:15 ALT 36 U/L (9-52) 12/11/18 06:15 Alkaline Phosphatase 66 U/L (38-126) 12/11/18 06:15 Total Protein 7.0 G/DL (6.3-8.2) 12/11/18 06:15 Albumin 3.8 g/dL (3.5-5.0) 12/11/18 06:15 Globulin 3.2 gm/dL (2.2-3.9) 12/11/18 06:15 Albumin/Globulin Ratio 1.2 (1.0-2.1) 12/11/18 06:15 Urine Color Yellow (YELLOW) 12/15/18 11:07 Urine Clarity Clear (Clear) 12/15/18 11:07 Urine pH 6.0 (5.0-8.0) 12/15/18 11:07 Ur Specific [place] 1.015 (1.003-1.030) 12/15/18 11:07 Urine Protein Negative mg/dL (NEGATIVE) 12/15/18 11:07 Urine Glucose (UA) Neg mg/dL (NEGATIVE) 12/15/18 11:07 Urine Ketones Negative mg/dL (NEGATIVE) 12/15/18 11:07 Urine Blood Negative (NEGATIVE) 12/15/18 11:07 Urine Nitrate Negative (NEGATIVE) 12/15/18 11:07 Urine Bilirubin Negative (NEGATIVE) 12/15/18 11:07 Urine Urobilinogen 0.2-1.0 mg/dL (0.2-1.0) 12/15/18 11:07 Ur Leukocyte Esterase Neg Sean/uL (Negative) 12/15/18 11:07 Urine RBC (Auto) 1 /hpf (0-3) 12/15/18 11:07 Urine Microscopic WBC 1 /hpf (0-5) 12/15/18 11:07 Ur Squamous Epith Cells 2 /hpf (0-5) 12/15/18 11:07 Discharge Exam - Head Exam Head Exam: ATRAUMATIC, NORMOCEPHALIC Discharge Plan - Discharge Medications Prescriptions: oxyCODONE/Acetaminophen [Percocet 5/325 mg Tab] 1 tab PO Q4 PRN #20 tab PRN Reason: Pain, Moderate (4-7) - Follow Up Plan Condition: STABLE Disposition: HOME/ ROUTINE Instructions: Debridement of a Wound or Burn, Skin Graft (DC) Additional Instructions: hacer rené con farooq primario dentro de 1 semana Referrals: Shaik Rehman MD [Family Provider] - Cheo Randle DPM [Staff Provider] -
== END 2018-12-16 14:31 | disposition home or self-care (01) | DRG 263 ==
LOC: H.ER 10:25 → H.ERHOLD 12:57 → H.MEDSURG1 16:30
PROVIDERS: ADMIT Internal Medicine; ATTEND Internal Medicine
PROC: 0JBN0ZZ Excision of Right Lower Leg Subcutaneous Tissue and Fascia, Open Approach (ICD-10-PCS; 2018-12-11)
PROC: 3E0T3BZ Introduction of Anesthetic Agent into Peripheral Nerves and Plexi, Percutaneous Approach (ICD-10-PCS; 2018-12-11)
PROC: 0JBP0ZZ Excision of Left Lower Leg Subcutaneous Tissue and Fascia, Open Approach (ICD-10-PCS; principal; 2018-12-11 13:30)
PROC: 0HXLXZZ Transfer Left Lower Leg Skin, External Approach (ICD-10-PCS; 2018-12-11 13:30)
PROC: 0HDLXZZ Extraction of Left Lower Leg Skin, External Approach (ICD-10-PCS; 2018-12-15)
PROC: 0HDKXZZ Extraction of Right Lower Leg Skin, External Approach (ICD-10-PCS; 2018-12-15)
DX: L97.529 Non-pressure chronic ulcer of other part of left foot with unspecified severity (principal); D68.51 Activated protein C resistance; L97.519 Non-pressure chronic ulcer of other part of right foot with unspecified severity; I87.2 Venous insufficiency (chronic) (peripheral); Z87.891 Personal history of nicotine dependence